=== PATIENT | male | born 1965 | race Caucasian/White ===

== ENCOUNTER → 2017-06-23 | Outpatient (CLI) | payer MEDICAID | PROVIDERS: ATTEND Internal Medicine Gastroenterology | DX: K22.5 Diverticulum of esophagus, acquired (principal) | CPT/HCPCS: 92611-GN ==

== ENCOUNTER 2017-07-27 07:08 | Inpatient (IN) | payer MEDICAID ==
--- NOTE | 2017-07-23 16:02 | GHP ---
[f rep st] HISTORY AND PHYSICAL DATE OF ADMISSION: 07/27/2017 CHIEF COMPLAINT: Esophageal dysmotility, esophageal spasm, and dysphagia. HISTORY OF PRESENT ILLNESS: The patient is a 51-year-old male, who is referred here by Dr. Enrique, for complaining of esophageal spasm, esophageal dysmotility , and dysphasia. The patient has undergone extensive workup for these problems , including abdominal ultrasound on December, it was unremarkable. Gastric emptying study on 06/16/2017 was unremarkable, and x-ray esophagram on 2016, that reported an outpouching of the cervical, thoracic junction, consistent with a Dylon-Maykel diverticulum, possible tiny hiatal hernia, and mild esophageal dysmotility, and x-ray video fluoro speech study on 2016, that mentions the same diverticulum just below the upper esophageal sphincter, and was otherwise normal with swallowing. Today, the patient says that he feels the diverticula bilaterally from which he massages food, and pills that get stuck in his esophagus when he tries to swallow. He denies feeling symptoms of GERD, but has esophageal spasms 3-4 times per week, that he says feel like heart attacks. He also says that he was having heartburn when he had an esophageal ulcer years ago, but he feels that this is healed. The patient also mentions that he suffers from parkinsonian symptoms, which he says has been told may be contributing to his dysphagia. He reports that he had a cardiac workup a year ago for his symptoms. PAST MEDICAL HISTORY: Significant for parkinsonian symptoms, hallucinations, seizures triggered by Demerol given in 1999 for kidney disease, but there is no clear diagnosis for his cognitive defects. As for his cognitive defects, he is aware of person, place and time in the exam room today, but mentions hearing a radio at the 3 o'clock position, in another room all the time, and police sirens are always around his house, and he always has a man following him. He takes clozapine which helps his hallucinations. REVIEW OF SYSTEMS: A 10-point review of systems negative, except for as noted above in the HPI. PHYSICAL EXAM: GENERAL: Well-groomed, pleasant, nontoxic-appearing male. SKIN : Warm, dry. HEENT: Normocephalic, atraumatic. Pupils equal and round. CARDIAC: Regular rate and rhythm. RESPIRATORY: CTA bilaterally, no increased work of breathing. Extremities adequate peripheral perfusion, negative for peripheral edema. MUSCULOSKELETAL: Patient ambulates using a walker. NEURO: Symmetric, cranial nerves 2-12 grossly intact, alert and oriented x4. PSYCH: Mood and affect are normal, the patient admits to some visual and audible hallucinations here in the exam room. ASSESSMENT: Zenker's hypopharyngeal diverticulum, esophageal spasm. PLAN: The patient was advised that according to his imaging, he has Zenker's diverticulum that would be amenable to repair in the operating room. We discussed the usual course of this procedure, and the general course of recovery , and the associated risks, including bleeding, infection, and changes to his voice. We talked about his esophageal spasm, and I mentioned that this may be treated, and has been treated effectively with Botox. We also talked about his tiny hiatal hernia, and I assured him that this would not be causing him the chest pains. I recommended that he have repair of the diverticulum first, before proceeding with repair of the hiatal hernia. He understood all the above. I answered all of his questions to his satisfaction. He wishes to move forward with the surgery for Zenker diverticulectomy. /[id number]/MODL MTDD
[2017-07-27] MEDS ORDERED: ceFAZolin 2 GM/DEXTROSE 100 ML IV ONE (07:43)
[2017-07-27] MEDS ORDERED: LIDOCAINE 1% 2 ML INJ ID PRN (07:49)
[2017-07-27] MEDS ORDERED: LR 1,000 ML IV ONE (07:49)
--- NOTE | 2017-07-27 08:41 | PDHPUP ---
History & Physical Update H&P update statement: This history and physical update is based on an assessment of the patient which was completed after admission or registration (within 24 hours), but prior to the surgery/procedure. H&P update: H&P reviewed & patient examined, no change in patient's condition since H&P completed
[2017-07-27] MEDS ORDERED: CITRIC ACID/SODIUM CITRATE 30 ML UDCUP ONE (08:51)
[2017-07-27] MEDS ORDERED: MIDAZOLAM 2 MG/2 ML VIAL ONE ×3 (08:53→10:33)
[2017-07-27] MEDS ORDERED: THROMBIN (BOVINE) 20,000 UNIT SPRAY TP ONE (08:58)
[2017-07-27] MEDS ORDERED: BUPIVACAINE 0.5% 30 ML SDV ONE (08:58)
[2017-07-27] MEDS ORDERED: fentaNYL 100 MCG/2 ML INJ ONE ×2 (09:01→12:26)
[2017-07-27] MEDS ORDERED: PROPOFOL/EMULSION 500 MG/50 ML BOTTLE IV ONE ×2 (09:02→09:21)
[2017-07-27] MEDS ORDERED: ROCURONIUM 100 MG/10 ML VIAL ONE (09:25)
[2017-07-27] MEDS ORDERED: LIDOCAINE 2% 5 ML SDV ONE (09:25)
[2017-07-27] MEDS ORDERED: SUGAMMADEX SODIUM 200 MG/2 ML VIAL IVP ONE ×2 (09:25→10:22)
[2017-07-27] MEDS ORDERED: NALOXONE HCL 0.4 MG/ML INJ IVP PRN (09:41)
--- NOTE | 2017-07-27 09:41 | PDANEPAE ---
ANE Past Medical History - Cardiovascular History Hx Hypertension: Yes Hx Arrhythmias: No Hx Chest Pain: No Hx Coronary Artery / Peripheral Vascular Disease: No Hx CHF / Valvular Disease: No Hx Palpitations: No Cardiovascular History Comment: PAST HX HYPERTENSION WHEN HEAVIER - NONE SINCE LOSING WT - Pulmonary History Hx COPD: No Hx Asthma/Reactive Airway Disease: No Hx Recent Upper Respiratory Infection: No Hx Oxygen in Use at Home: Yes O2 in Use at Home (L/minute): O2 2L NOC Hx Sleep Apnea: Yes Sleep Apnea Screening Result - Last Documented: Positive Pulmonary History Comment: POS SLEEP APNEA - Neurologic History Hx Cerebrovascular Accident: No Hx Seizures: No Hx Dementia: No Neurologic History Comment: SEIZURES 20 YRS AGO DUE TO DEMEROL. Jona chorea - Endocrine History Hx Diabetes: No - Renal History Hx Renal Disorders: Yes Renal History Comment: TAMSULOSIN - Liver History Hx Hepatic Disorders: No - Neurological & Psychiatric Hx Hx Neurological and Psychiatric Disorders: Yes Neurological / Psychiatric History Comment: PARKINSONS W/TREMORS - Cancer History Hx Cancer: Yes Cancer History Comment: HX RENAL CELL CA POSS W/CHEMO? - Congenital Disorder History Hx Congenital Disorders: No - GI History Hx Gastrointestinal Disorders: Yes Gastrointestinal History Comment: ESOPHAGEAL SPASMS. DIVERTICULI - Other Health History Other Health History: SCALP ECZEMA - Chronic Pain History Chronic Pain: Yes (HIPS) - Surgical History Prior Surgeries: SURGERY FOR THROAT GROWTH. SEPTOPLASTY ANE Review of Systems Review of Systems: - Exercise capacity METS (RN): 3 METS ANE Patient History - Allergies Allergies/Adverse Reactions: acetaminophen [From Vicodin] Allergy (Verified 07/27/17 08:29) chlorpromazine HCl [From Thorazine] Allergy (Verified 11/25/15 14:24) divalproex sodium [From Depakote] Allergy (Verified 11/25/15 14:24) duloxetine HCl [From Cymbalta] Allergy (Verified 11/25/15 14:24) hydrocodone bitartrate [From Vicodin] Allergy (Verified 11/25/15 14:24) meperidine HCl [From Demerol] Allergy (Verified 11/25/15 14:24) NSAIDS (Non-Steroidal Anti-Inflamma Allergy (Verified 11/25/15 14:24) zolpidem tartrate [From Ambien] Allergy (Verified 11/25/15 14:24) - Home Medications Home Medications: Tamsulosin HCl [Flomax 0.4 MG (*)] 0.4 mg PO HS 11/25/15 [Last Taken 07/27/17 06 :30] clonazePAM [Klonopin (*)] 0.5 mg PO BID PRN MDD 2mg 11/25/15 [Last Taken 17] Amantadine HCl [Amantadine] 100 mg PO BID 09/11/16 [Last Taken 07/27/17 06:30] Atropine Oral Drops 2 drops PO HS PRN 09/11/16 [Last Taken Unknown] Benztropine Mesylate [Cogentin (RX)] 1 mg PO QID 09/11/16 [Last Taken 07/27/17 06:30] Cyclobenzaprine [Cyclobenzaprine HCl] 5 mg PO TID 09/11/16 [Last Taken 07/26/17 22:00] Erythromycin Base [Erythromycin] 250 mg PO TIDMEAL 09/11/16 [Last Taken 07/13/17 ] HYOSCYAMINE SULFATE [Levsin-Sl] 0.125 mg SL PRN PRN 09/11/16 [Last Taken 22:00] Mirabegron [Myrbetriq] 50 mg PO DAILY 09/11/16 [Last Taken 07/27/17 06:30] Propranolol HCl [Inderal 20mg (*)] 20 mg PO BID 09/11/16 [Last Taken 07/27/17 06 :30] Quetiapine Fumarate [Seroquel Xr] 50 mg PO AD 09/11/16 [Last Taken Unknown] Rabeprazole Sodium 20 mg PO BID 09/11/16 [Last Taken 07/27/17 06:30] cloZAPine [Clozaril (*)] 100 mg PO DAILY 09/11/16 [Last Taken 07/26/17 23:00] - NPO status NPO Since - Liquids (Date): 07/26/17 NPO Since - Liquids (Time): 23:59 NPO Since - Solids (Date): 07/25/17 - Smoking Hx Smoking Status: Never smoked - Family Anes Hx Family Hx Anesthesia Complications: NEG ANE Labs/Vital Signs - Vital Signs Blood Pressure: 126/74 Heart Rate: 75 Respiratory Rate: 16 O2 Sat (%): 94 Height: 180.34 cm Weight: 113.398 kg ANE Physical Exam - Airway Neck exam: decreased ROM, short neck Mallampati Score: Class 2 Mouth exam: normal dental/mouth exam - Pulmonary Pulmonary: no rales or rhonchi, clear to auscultation, reduced air movement - Cardiovascular Cardiovascular: regular rate and rhythym, no murmur, rub, or gallop - ASA Status ASA Status: IV ANE Anesthesia Plan Anesthesia Plan: general endotracheal anesthesia Lines/Monitors: additional IV (rapid sequence induction with rocuronium, sitting up intubation)
[2017-07-27] MEDS ORDERED: DEXAMETHASONE 4 MG/ML VIAL IVP PRN (09:46)
[2017-07-27] MEDS ORDERED: LABETALOL HCL 50 MG/10 ML SYR IVP PRN (09:46)
[2017-07-27] MEDS ORDERED: ALBUTEROL 3 ML DEYVIAL IH PRN (09:46)
[2017-07-27] MEDS ORDERED: fentaNYL 100 MCG/2 ML INJ IVP PRN (09:46)
[2017-07-27] MEDS ORDERED: ONDANSETRON 4 MG/2 ML VIAL IVP PRN ×2 (09:46→10:27)
[2017-07-27] MEDS ORDERED: LR 500 ML IV PRN (09:46)
[2017-07-27] MEDS ORDERED: THROMBIN (BOVINE) 5,000 UNIT VIAL TP ONE (09:57)
--- NOTE | 2017-07-27 10:25 | POSTOPPROG ---
Post Op Note Date of Operation: 07/27/17 Surgeon: Bill Benton Urologist Physician: Carolina Dennis Anesthesiologist: Trixie Sherman Anesthesia: GET(General Endotracheal) Pre-op Diagnosis: Zenker's diverticulum with dysphagia Post-op Diagnosis: same Procedure: open diverticulectomy and cricomyotomy Findings: large diverticulum, no leak along staple line upon interrogation Inf/Abcess present in the surg proc area at time of surgery?: No EBL: Minimal Complications: none Drains: Loving Specimen(s): diverticulum to pathology
[2017-07-27] MEDS ORDERED: DIAZEPAM 10 MG/2 ML SYR ONE (10:37)
--- NOTE | 2017-07-27 10:54 | POSTANESTH ---
Post Anesthetic Evaluation Cardiovascular Status: Normal, Stable Respiratory Status: Similar to Pre-op Cond. Level of Consciousness/Mental Status: Can Participate in Eval Pain Control: Adequate, Prn Tx Ordered Nausea/Vomiting Control: Adequate, Prn Tx Ordered Complications Possibly Related to Anesthesia: None Noted
[2017-07-27] MEDS: HYDROmorphONE/DILAUDID 2 MG/ML INJ IVP PRN ×5 (13:52→21:21)
[2017-07-27] MEDS: NS W/ 20 KCl/L 1,000 ML IV SCH ×2 (13:53→22:28)
[2017-07-27] MEDS: oxyCODONE IR 5 MG TAB PO PRN ×2 (16:03→22:29)
[2017-07-27] MEDS ORDERED: HYOSCYAMINE SULFATE 0.125 MG TAB SL PRN (20:17)
[2017-07-27] MEDS ORDERED: clonazePAM 0.5 MG TAB PO PRN (20:17)
[2017-07-27] MEDS: cloZAPine 100 MG TAB PO SCH (21:18)
[2017-07-27] MEDS: BENZTROPINE MESYLATE 1 MG TAB PO SCH (21:18)
[2017-07-27] MEDS: AMANTADINE HCL 100 MG CAP PO SCH (21:19)
[2017-07-27] MEDS: PROPRANOLOL HCL 20 MG TAB PO SCH (21:19)
[2017-07-27] MEDS: RABEPRAZOLE SODIUM 20 MG PO SCH (21:27)
[2017-07-27] MEDS: DOCUSATE SODIUM 100 MG CAP PO SCH (21:27)
[2017-07-28 05:04] LABS: HEMATOCRIT 40.3 % (40.0-51.0); HEMOGLOBIN 13.7 g/dL (13.7-17.5)
[2017-07-28 05:19] LABS: ANION GAP 9 mEq/L (8-16); CALCIUM 8.7 mg/dL (8.5-10.4); CARBON DIOXIDE 26 mEq/l (22-31); CHLORIDE 104 mEq/L (97-110); CREATININE 0.9 mg/dL (0.7-1.3); GLOMERULAR FILTRATION RATE > 60; GLUCOSE 122 mg/dL (70-100); POTASSIUM 3.9 mEq/L (3.5-5.2); SODIUM 139 mEq/L (134-144)
[2017-07-28] MEDS: NS W/ 20 KCl/L 1,000 ML IV SCH (06:20)
--- NOTE | 2017-07-28 10:10 | SOAPPROG ---
BOUCHRA Progress Note Assessment/Plan: Assessment/Plan: 51 Y M c parkinsonian symptoms, possible Jona's, + psychiatric history, s/p open resection of Zenker's diverticulum. Continue routine post op care. Continue clears. Dispo: pending. S: c/o pain with swallowing, then goes into tangent about cell phones, and lights, and passwords... O: alert, answers questions but goes into unrelated rants. knows he is in the hospital. unable to tell me year and month. mmm, neck inc clean, diony drain in place ctab rrr abd soft 07/28/17 10:06 Objective: Vital Signs Temp Pulse Resp BP Pulse Ox 37.2 C 87 14 144/85 H 92 07/28/17 08:00 07/28/17 08:00 07/28/17 08:00 07/28/17 08:00 07/28/17 08:00 Laboratory Results 07/28/17 04:15 07/28/17 04:15 07/27/17 07/28/17 07/29/17 05:59 05:59 05:59 Intake Total 3355 Output Total 1050 Balance 2305 ICD10 Worksheet Patient Problems: Problems Problem Status Onset Chest pain Acute
[2017-07-28] MEDS: TAMSULOSIN HCL 0.4 MG CAP PO SCH ×2 (10:22→11:14)
[2017-07-28] MEDS: DOCUSATE SODIUM 100 MG CAP PO SCH ×3 (10:22→20:36)
[2017-07-28] MEDS: PROPRANOLOL HCL 20 MG TAB PO SCH ×3 (10:22→20:38)
[2017-07-28] MEDS: BENZTROPINE MESYLATE 1 MG TAB PO SCH ×3 (10:22→20:34)
[2017-07-28] MEDS: VENLAFAXINE HCL 75 MG TAB PO SCH ×2 (10:22→11:14)
[2017-07-28] MEDS: AMANTADINE HCL 100 MG CAP PO SCH ×3 (10:22→20:36)
[2017-07-28] MEDS: RABEPRAZOLE SODIUM 20 MG PO SCH (10:23)
[2017-07-28] MEDS: Mirabegron [Myrbetriq] 50 MG PO SCH (10:23)
--- NOTE | 2017-07-28 11:31 | ASMTCMCOM ---
CM Note CM Note Notes: Pt is POD #1 s/p open resection Zenkers diverticulum. Pt has hx of Parkinsons, per RN, pt is confused at this time (possibly sec to meds from surgery yest); she said apparently brother will be coming to stay with him. He currently lives at home w/roommates. PT rec pending, will meet with pt when confusion clears. DC needs not clear yet. Date Signed: 07/28/2017 11:30 AM Electronically Signed By:Valeria Mejia RN
[2017-07-28] MEDS: ACETAMINOPHEN 325 MG TAB PO PRN (17:26)
[2017-07-28] MEDS: cloZAPine 100 MG TAB PO SCH (20:34)
[2017-07-28] MEDS: PANTOPRAZOLE SODIUM 40 MG TAB PO SCH (20:37)
[2017-07-29] MEDS: AMANTADINE HCL 100 MG CAP PO SCH ×2 (08:30→21:04)
[2017-07-29] MEDS: DOCUSATE SODIUM 100 MG CAP PO SCH ×2 (08:30→21:03)
[2017-07-29] MEDS: BENZTROPINE MESYLATE 1 MG TAB PO SCH ×2 (08:30→21:03)
[2017-07-29] MEDS: VENLAFAXINE HCL 75 MG TAB PO SCH (08:30)
[2017-07-29] MEDS: PROPRANOLOL HCL 20 MG TAB PO SCH ×2 (08:30→21:03)
[2017-07-29] MEDS: PANTOPRAZOLE SODIUM 40 MG TAB PO SCH ×2 (08:30→21:03)
[2017-07-29] MEDS: ENOXAPARIN 40 MG/0.4 ML SYR SC SCH (08:30)
[2017-07-29] MEDS: TAMSULOSIN HCL 0.4 MG CAP PO SCH (08:30)
[2017-07-29] MEDS: Mirabegron [Myrbetriq] 50 MG PO SCH (08:36)
--- NOTE | 2017-07-29 14:54 | ASMTCMCOM ---
CM Note CM Note Notes: Note: Pt. goes by "Rico". Per RN, Pt. has been "talking to himself' and possibly confused and hallucinating in room. RN advocated and spoke w/ Starr Guzman. Starr rey OT and also Therese Gongora behavioral health consult. Therese Gongora not working at [facility] until August. SWer was able to get in touch w/ brother, Joel . Joel states Pt. lives in the basement of a house and his roomates live upstairs. Pt. has been living independently. Brother states that Pt. has struggled with mental health issues, but other than depression, does not know additional possible diagnoses. Joel states Pt. states he might have been diagnosed with early onset dementia and Parksinson's disease. States their father of Parkinson's disease and was always very sensitive to anesthesia. Brother Joel reports Pt. has not driven in some two years. Joel states Pt. did get disability benefits recently, but doesn't know what diagnoses helped him obtain benefits. Brother Joel plans to [facility] to get a sense of Pt's presentation. Will work on [employer] application tomorrow if Joel thinks Pt. will need 30-day Medicaid stay before going home. Date Signed: 07/29/2017 02:53 PM Electronically Signed By:Elisa Lucero LCSW
[2017-07-29] MEDS ORDERED: HYDROmorphONE/DILAUDID 1 MG/ML INJ IVP PRN (15:00)
--- NOTE | 2017-07-29 17:44 | SOAPPROG ---
SOAP Progress Note Assessment/Plan: Assessment: 51 Y M c parkinsonian symptoms, possible [place]'s, +psychiatric history, s/ p open resection of Zenker's diverticulum. Cont routine post op care Behavior health consult PT/OT Swallow study Cont wired jaw diet S: Pt continues to have tangental speaking this morning, not making sense. No specific complaints. O: Pt lying in bed. Appears drowsy. MMM neck incision dressing c/d abd soft Objective: Vital Signs Temp Pulse Resp BP Pulse Ox 37.2 C 76 20 132/76 H 95 07/29/17 16:00 07/29/17 16:00 07/29/17 16:00 07/29/17 16:00 07/29/17 16:00 Laboratory Results 07/28/17 04:15 07/28/17 04:15 07/28/17 07/29/17 07/30/17 05:59 05:59 05:59 Intake Total 3355 Output Total 1050 1400 Balance 2305 -1400 ICD10 Worksheet Patient Problems: Problems Problem Status Onset Chest pain Acute
[2017-07-29] MEDS: cloZAPine 100 MG TAB PO SCH (21:03)
[2017-07-30] MEDS: ACETAMINOPHEN 325 MG TAB PO PRN ×2 (09:52→20:28)
[2017-07-30] MEDS: AMANTADINE HCL 100 MG CAP PO SCH ×2 (09:53→20:14)
[2017-07-30] MEDS: Mirabegron [Myrbetriq] 50 MG PO SCH (09:54)
[2017-07-30] MEDS: BENZTROPINE MESYLATE 1 MG TAB PO SCH ×2 (09:54→20:14)
[2017-07-30] MEDS: DOCUSATE SODIUM 100 MG CAP PO SCH ×2 (09:54→20:13)
[2017-07-30] MEDS: PANTOPRAZOLE SODIUM 40 MG TAB PO SCH ×2 (09:54→20:13)
[2017-07-30] MEDS: PROPRANOLOL HCL 20 MG TAB PO SCH ×2 (09:54→20:14)
[2017-07-30] MEDS: TAMSULOSIN HCL 0.4 MG CAP PO SCH (09:54)
[2017-07-30] MEDS: VENLAFAXINE HCL 75 MG TAB PO SCH (09:55)
[2017-07-30] MEDS: ENOXAPARIN 40 MG/0.4 ML SYR SC SCH (09:55)
--- NOTE | 2017-07-30 12:27 | SOAPPROG ---
SOAP Progress Note Assessment/Plan: Assessment: 51 Y M c parkinsonian symptoms, possible [place]'s, +psychiatric history, s/ p open resection of Zenker's diverticulum. Cont routine post op care Behavior health consult PT/OT Cont wired jaw diet Dressing change today Dispo: will stay here over the weekend to see if mental status improves then discharge to home or to long-term. S: Pt continues to have tangental speaking this morning, but improved clarity from yesterday. No specific complaints. O: Pt sitting up in bed, NAD MMM neck incision dressing with some serous shadowing. abd soft 07/30/17 12:26 Objective: Vital Signs Temp Pulse Resp BP Pulse Ox 36.7 C 73 16 135/84 H 93 07/30/17 08:00 07/30/17 08:00 07/30/17 08:00 07/30/17 08:00 07/30/17 08:00 Laboratory Results 07/28/17 04:15 07/28/17 04:15 07/29/17 07/30/17 07/31/17 05:59 05:59 05:59 Intake Total 1100 Output Total 1400 Balance -1400 1100 ICD10 Worksheet Patient Problems: Problems Problem Status Onset Chest pain Acute
--- NOTE | 2017-07-30 15:02 | ASMTCMCOM ---
CM Note CM Note Notes: Today GENEVIEVE Yeh, OT, and SWer met briefly to discuss d/c planning for Pt. Starr thinks that it is likely Pt. will clear in next few days and not need 30-day stay in LTC Medicaid facility. OT recommending LTC at this time. Starr would like to "reassess" on Wednesday. Possible Pt. had strong reaction to anesthesia. SWer spoke w/ brother Joel again on phone today. Joel did visit last night and stated Pt. was definitely not himself. Hallucinating, and making incoherent statements. States just "last weekend" he had normal conversations with his brother. Joel states he understood from Pt. that he would be his MDPOA - Joel does not believe there is paperwork to that effect. SWer was able to get more details today by a colleague accessing [employer] database. Pt. 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 Dr. Hawkins referred Pt. to Dr. Jewel Cisneros, a specialist in movement disorders. Pt. also had psychiatrist through [facility] Dr. Coty Guillaume . SWer left msg for Dr. Guillaume today in an attempt to coordinate care. Also l/m for Ms. Pamela Rogers who appears to be Pt's protective services case worker through [facility] . Await return calls. Pt's PCP is Dr. Engel with Dr. Irena Eddy seeing Pt. as well. Plan: Per surgery, reevaluate Pt's mental status on Wednesday. If Pt. not clear, SWer recommends neurology consult/psychiatry consult and [facility] 100 will need to be completed if Medicaid custodial stay is indicated. Date Signed: 07/30/2017 03:01 PM Electronically Signed By:Elisa Lucero LCSW
--- NOTE | 2017-07-30 16:59 | ASMTCMCOM ---
CM Note CM Note Notes: Today [facility] gearcase assembler Liza Rogers returned SWer's call. Has a release to speak w/ [facility]. States current Pt. diagnoses are 1) Schizoaffective disorder, Bipolar Type and 2) PTSD. Liza states Pt. does have a hx. of hallucinations, but is normally independently functioning. Liza states that [facility] can call quality assurance supervisor trim line at [facility] should we need further consultation about medications - . Should Pt. need [facility] psychiatric eval before d/c, call [facility] for Emergency Psychiatric Services (EPS) evaluation ([phone]). Dr. Guillaume called back and stated that she was available for consultation at should Pt. need EPS evaluation and they chose to consult with her. Dr Guillaume approved of current medication plan and dosages. She encouraged limiting Klonopin if Pt. is incoherent. Plan for re-evaluation of Pt. on Wednesday. Date Signed: 07/30/2017 04:59 PM Electronically Signed By:Elisa Lucero LCSW
[2017-07-30] MEDS: cloZAPine 100 MG TAB PO SCH (20:13)
[2017-07-31] MEDS: ACETAMINOPHEN 325 MG TAB PO PRN (04:38)
[2017-07-31] MEDS: Mirabegron [Myrbetriq] 50 MG PO SCH (08:51)
[2017-07-31] MEDS: TAMSULOSIN HCL 0.4 MG CAP PO SCH (09:37)
[2017-07-31] MEDS: ENOXAPARIN 40 MG/0.4 ML SYR SC SCH (09:38)
[2017-07-31] MEDS: PROPRANOLOL HCL 20 MG TAB PO SCH ×2 (09:38→20:52)
[2017-07-31] MEDS: VENLAFAXINE HCL 75 MG TAB PO SCH (09:38)
[2017-07-31] MEDS: DOCUSATE SODIUM 100 MG CAP PO SCH ×2 (09:38→20:51)
[2017-07-31] MEDS: BENZTROPINE MESYLATE 1 MG TAB PO SCH ×2 (09:38→20:52)
[2017-07-31] MEDS: PANTOPRAZOLE SODIUM 40 MG TAB PO SCH ×2 (09:38→20:51)
[2017-07-31] MEDS: AMANTADINE HCL 100 MG CAP PO SCH ×2 (09:38→20:51)
--- NOTE | 2017-07-31 09:45 | SOAPPROG ---
SOHAILEY Progress Note Assessment/Plan: Assessment/Plan: 51yo M s/p Moshe diverticulectomy - Pain and numbness, will try oxycodone this AM as he has many allergies - His dose of amantidine is appropriate - IMMUNOLOGY TEACHER eval as he is having a lot of coughing this AM and I am concerned for poss aspiration. Cont modified diet for the time being 07/31/17 09:44 Subjective: Pain and numbness Objective: Vital Signs Temp Pulse Resp BP Pulse Ox 36.4 C 103 H 20 119/89 H 91 L 07/31/17 08:00 07/31/17 08:00 07/31/17 08:00 07/31/17 08:00 07/31/17 08:00 Laboratory Results 07/28/17 04:15 07/28/17 04:15 07/30/17 07/31/17 08/01/17 05:59 05:59 05:59 Intake Total 1100 Balance 1100 ICD10 Worksheet Patient Problems: Problems Problem Status Onset Chest pain Acute
[2017-07-31] MEDS: cloZAPine 100 MG TAB PO SCH (20:51)
[2017-07-31] MEDS: oxyCODONE IR 5 MG TAB PO PRN (21:04)
[2017-08-01] MEDS: oxyCODONE IR 5 MG TAB PO PRN ×2 (00:48→21:17)
--- NOTE | 2017-08-01 09:12 | SOAPPROG ---
BOUCHRA Progress Note Assessment/Plan: Assessment/Plan: 51yo M s/p Moshe diverticulectomy - speech therapy evaluation yesterday went off without a hitch, and he passed. Okay for him to have scrambled legs and mashed potatoes in addition to his wired jaw diet. - patient feels as though he is "getting sick" will check some labs today no fevers no chills he otherwise looks nontoxic - mental status continues to be a little zany, will evaluate early this week hopefully home this week 07/31/17 09:44 08/01/17 09:11 Subjective: I feel like I have a cold Objective: Vital Signs Temp Pulse Resp BP Pulse Ox 36.8 C 92 18 151/93 H 94 08/01/17 07:47 08/01/17 07:47 08/01/17 07:47 08/01/17 07:47 08/01/17 07:47 Laboratory Results 07/28/17 04:15 07/28/17 04:15 ICD10 Worksheet Patient Problems: Problems Problem Status Onset Chest pain Acute
[2017-08-01] MEDS: AMANTADINE HCL 100 MG CAP PO SCH ×2 (09:31→21:12)
[2017-08-01] MEDS: ACETAMINOPHEN 325 MG TAB PO PRN ×2 (09:31→14:59)
[2017-08-01] MEDS: BENZTROPINE MESYLATE 1 MG TAB PO SCH ×2 (09:31→21:12)
[2017-08-01] MEDS: ENOXAPARIN 40 MG/0.4 ML SYR SC SCH (09:31)
[2017-08-01] MEDS: PROPRANOLOL HCL 20 MG TAB PO SCH ×2 (09:31→21:11)
[2017-08-01] MEDS: TAMSULOSIN HCL 0.4 MG CAP PO SCH (09:31)
[2017-08-01] MEDS: PANTOPRAZOLE SODIUM 40 MG TAB PO SCH ×2 (09:32→21:12)
[2017-08-01] MEDS: DOCUSATE SODIUM 100 MG CAP PO SCH ×2 (09:32→21:14)
[2017-08-01] MEDS: VENLAFAXINE HCL 75 MG TAB PO SCH (09:32)
[2017-08-01 09:44] LABS: HEMATOCRIT 42.9 % (40.0-51.0); HEMOGLOBIN 14.5 g/dL (13.7-17.5); MEAN CELL HEMOGLOBIN 28.4 pg (27.9-34.1); MEAN CELL HEMOGLOBIN CONCENTR. 33.8 g/dL (32.4-36.7); MEAN CELL VOLUME 84.1 fL (81.5-99.8); RED BLOOD CELL COUNT 5.1 10^6/uL (4.40-6.38); RED CELL DISTRIBUTION WIDTH 12.6 % (11.5-15.2)
[2017-08-01] MEDS: Mirabegron [Myrbetriq] 50 MG PO SCH (10:00)
[2017-08-01 10:05] LABS: ANION GAP 14 mEq/L (8-16); CALCIUM 8.8 mg/dL (8.5-10.4); CARBON DIOXIDE 23 mEq/l (22-31); CHLORIDE 105 mEq/L (97-110); GLOMERULAR FILTRATION RATE > 60; GLUCOSE 134 mg/dL (70-100); POTASSIUM 3.5 mEq/L (3.5-5.2); SODIUM 142 mEq/L (134-144)
--- NOTE | 2017-08-01 15:20 | ASMTCMCOM ---
CM Note CM Note Notes: Pt passed swallow eval and starting on soft foods. Hopefully will d/c in a few days. CM to continue to follow. Date Signed: 08/01/2017 03:20 PM Electronically Signed By:JOANNE Kelly
[2017-08-01] MEDS: cloZAPine 100 MG TAB PO SCH (21:11)
[2017-08-02] MEDS: oxyCODONE IR 5 MG TAB PO PRN ×2 (03:04→09:23)
[2017-08-02] MEDS: AMANTADINE HCL 100 MG CAP PO SCH ×2 (09:15→21:14)
[2017-08-02] MEDS: PROPRANOLOL HCL 20 MG TAB PO SCH ×2 (09:15→21:13)
[2017-08-02] MEDS: DOCUSATE SODIUM 100 MG CAP PO SCH ×2 (09:15→21:14)
[2017-08-02] MEDS: BENZTROPINE MESYLATE 1 MG TAB PO SCH ×2 (09:15→21:13)
[2017-08-02] MEDS: Mirabegron [Myrbetriq] 50 MG PO SCH (09:16)
[2017-08-02] MEDS: TAMSULOSIN HCL 0.4 MG CAP PO SCH (09:16)
[2017-08-02] MEDS: VENLAFAXINE HCL 75 MG TAB PO SCH (09:16)
[2017-08-02] MEDS: ENOXAPARIN 40 MG/0.4 ML SYR SC SCH (09:16)
[2017-08-02] MEDS: PANTOPRAZOLE SODIUM 40 MG TAB PO SCH ×2 (09:16→21:14)
--- NOTE | 2017-08-02 09:20 | SOAPPROG ---
SOAP Progress Note Assessment/Plan: Assessment: 51 Y M c parkinsonian symptoms, +psychiatric history, s/p open resection of Zenker's diverticulum. Cont routine post op care PT/OT Cont wired jaw diet + scrambled eggs and mashed potatoes ok Dispo: OK from surgical standpoint. Home vs jail 2/2 mental status. Will discuss with case management. S: Pt c/o cough and some incisional neck pain. He states that he doesn't remember details of this hospital stay and that he thinks this all may be a dream that he will wake up from. O: Afebrile Pt lying in bed, NAD MMM coughing up mucous lungs CTAB neck incision c/d/i with steri strips. Julianna draining. abd soft Objective: Vital Signs Temp Pulse Resp BP Pulse Ox 37.1 C 94 18 125/70 H 92 08/02/17 08:24 08/02/17 08:24 08/02/17 08:24 08/02/17 08:24 08/02/17 08:24 Laboratory Results 08/01/17 09:31 08/01/17 09:31 ICD10 Worksheet Patient Problems: Problems Problem Status Onset Chest pain Acute
[2017-08-02 10:17] LABS: % IMMATURE GRANULYOCYTES 0.4 % (0.0-1.1); ABSOLUTE IMMATURE GRANULOCYTES 0.03 10^3/uL (0.00-0.10); ADD DIFF? NO; ADD MORPH? NO; ADD SCAN? NO; ATYPICAL LYMPHOCYTE FLAG 10 (0-99); FRAGMENT RBC FLAG 0 (0-99); HEMATOCRIT 40.6 % (40.0-51.0); HEMOGLOBIN 13.6 g/dL (13.7-17.5); LEFT SHIFT FLG 0 (0-99); LIPEMIA HEMOLYSIS FLAG 80 (0-99); MEAN CELL HEMOGLOBIN 28.7 pg (27.9-34.1); MEAN CELL HEMOGLOBIN CONCENTR. 33.5 g/dL (32.4-36.7); MEAN CELL VOLUME 85.7 fL (81.5-99.8); MEAN PLATELET VOLUME 9.7 fL (8.7-11.7); PLATELET CLUMPS FLAG 0 (0-99); PLATELET COUNT 236 10^3/uL (150-400); RED BLOOD CELL COUNT 4.74 10^6/uL (4.40-6.38); RED CELL DISTRIBUTION WIDTH 12.7 % (11.5-15.2)
[2017-08-02] MEDS: ACETAMINOPHEN 325 MG TAB PO PRN ×2 (12:47→21:13)
[2017-08-02] MEDS ORDERED: AMPICILLIN/SULBACTAM 1.5 GM in NS 50 ML IV SCH ×2 (15:30→18:00)
--- NOTE | 2017-08-02 16:42 | GCON ---
[f rep st] CONSULTATION DATE OF CONSULTATION: 08/02/2017 REASON FOR CONSULTATION: Internal medicine consultation for fever. HISTORY OF PRESENT ILLNESS: This is a 51-year-old gentleman who on 07/27 underwent the open repair of a Zenker diverticulum with a João myotomy from the left anterior chest region. He tolerated the procedure well and it was uncomplicated. Six days postop, today, the gentleman has developed a fever and has had 2 days of purulent cough without chest pain or shortness of breath. He reports some congestion in his right ear and feels that it is infected. He denies having a sore throat but does in fact have purulent productive cough without shortness of breath. He also denies having a history of asthma or recurrent problems of wheezing. There is also no prior history of coronary artery disease and he had a Lexiscan performed in the last 6 months which was negative. He does report some back pain in between the scapulae which was consistent with his esophageal spasm pain which he had had preoperative of his repair of the Zenker diverticulum. PAST MEDICAL HISTORY: Denies asthma. Positive for high blood pressure. Negative for diabetes and renal problems. He carries a diagnosis of Parkinson disease or Parkinson syndrome and has been seen by Dr. Cisse. The exact diagnosis is unclear and he discusses a possibility of a Lewy body disease although he does not know if that has been investigated. There is mention in his EMR of Guadalupe disease, yet he has no family history of this. 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 Cises. PAST SURGICAL HISTORY: 1. On 07/27/2017, he had the open repair of his Zenker diverticulum. 2. Uvulopalatopharyngectomy performed approximately 3 years ago. ALLERGIES: Reported to chlorpromazine, duloxetine, and others which are listed in his EMR. REVIEW OF SYSTEMS: A 10-point review of systems is otherwise negative. Recent studies show he has had a video fluoroscopic swallowing evaluation which was negative for findings of aspiration. He did have some pooling in the posterior oropharynx which resolved with the drinking of a thin liquid. Thus, a dysphagia 2 diet has been recommended with eating upright, alternating solids and liquids and eating slowly and chewing his food well. There are no sharri signs of aspiration from that study. FAMILY HISTORY: Positive for coronary artery disease and negative for coagulopathy. He has a sister and mother who both had DVTs but he denies a family history of a clotting disorder. 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 Not . Tobacco: Never. Alcohol: He rarely drank previous to the onset of his problem with his Zenker diverticulum and now he may have a glass of wine once or twice a year. PHYSICAL EXAMINATION: GENERAL: This is a pleasant, alert gentleman who is oriented x3 but becomes easily confused with numerous questions. VITAL SIGNS: He was febrile at 39.2 with normal blood pressure, heart rate and oxygenation is normal on supplemental oxygen. HEENT: His tympanic membranes are huntley bilaterally. The throat has a little bit of pooling of mucus but no sharri purulent mucus, erythema or signs of injection. There are no lesions on the tongue or buccal mucosa. CHEST: There is a surgical site in the left supraclavicular region that is healing well with a Mcarthur drain. He coughed during my examination and did in fact cough up purulent yellow sputum. Chest wall shows tenderness to palpation between the shoulder blades without signs of trauma. He has normal inspiratory excursion. LUNGS: Clear to P and A without wheezing or rales. HEART: Singular S1, S2. No murmur or gallop. ABDOMEN: Overweight. Normoactive bowel sounds. No masses, tenderness or organomegaly. EXTREMITIES: No edema, cyanosis, or clubbing. Negative Homans sign. LABORATORY: Recent laboratory today shows a normal WBC, hemoglobin. His renal panel is normal. Glucose is slightly elevated. A respiratory panel, flu swab, blood culture and urine culture are pending. Chest x-ray to my read shows a possible left lower lobe infiltrate. This is a very subtle finding. His heart is otherwise normal and there are no other signs of active pulmonary disease. ASSESSMENT: 1. Aspiration pneumonia with fever and purulent sputum production in a gentleman who has recently undergone repair of a Zenker diverticulum. Though the chest x-ray is not conclusive, the finding of purulent sputum seems strong enough to begin antibiotic care. He is not wheezing and there is no history of asthma, so bronchodilator therapy would not be necessary at this point. 2. Swallowing difficulty and chest pains related to his Zenker diverticulum. This is mostly resolved and though the swallowing study did not show aspiration , he may have pooled material in his posterior oropharynx or have eaten inappropriately. He is a little bit confused and has been by review of the notes in a confused state, and it is possible he aspirated during his confused state. Thus, this supports the finding of a possible aspiration pneumonia. His swallowing evaluation would indicate that he should sit upright, eat slowly , alternate liquids and solids. These orders have been placed. 3. Auditory and visual hallucinations. This is a stable diagnosis and we have him on his clozapine. He does seem to be improving with this. He is aware of the problem and reports that the clozapine improves his symptoms such that he can manage them. 4. Hypertension. He is currently in good control. 5. History of Parkinson disease for which he is on amantadine, and we will continue this medication. This appears to be stable. 6. Obstructive sleep apnea for which he uses oxygen at night only. We will continue to use his CPAP mask with supplemental oxygen. We will follow along with you. Time 55 minutes /[id number]/MODL MTDD
--- NOTE | 2017-08-02 17:04 | ASMTCMCOM ---
CM Note CM Note Notes: Pt still w/some confusion today, although conversation in afternoon was more clear than am conversation. Pt also has fever and not feeling great today. We discussed options of going home w/home care vs SNF. PT is still recommending SNF if pt does not have someone to stay w/him at home. Pt does live independantly, rents apt form friends who live upstairs. Pt is open to SNF if needed but he is hoping to get stronger over next few days and get to the point where he is ok to dc home. He said the main thing he is nervous about are the stairs that lead to his basement apt but he has been nervous about those for a long time he said. This CM Spoke today w/Hitesh Ba from [facility] [phone])) who is his RN/CM. Hitesh sees pt weekly and helps set up his meds. He said that if pt will need additional hhc we will need to set up through [facility] as he will likely not be able to be homebound. Also spoke w/pt's brother, Joel today. CM should start ULTC-100 tomorrow in case that pt ends up needing SNF. Pt said that if he did do rehab would like to stay in [place] if possible. He said would be ok to start w/referral to [facility]. KELLEN w/f. Date Signed: 08/02/2017 05:02 PM Electronically Signed By:Valeria Mejia, RN
[2017-08-02] MEDS: cloZAPine 100 MG TAB PO SCH (21:14)
[2017-08-02] MEDS: AMPICILLIN/SULBACTAM 1.5 GM in NS 50 ML IV SCH (23:53)
[2017-08-03] MEDS: NS W/ 20 KCl/L 1,000 ML IV SCH (01:14)
[2017-08-03] MEDS: AMPICILLIN/SULBACTAM 1.5 GM in NS 50 ML IV SCH ×4 (05:03→22:34)
[2017-08-03] MEDS: oxyCODONE IR 5 MG TAB PO PRN (05:05)
[2017-08-03 05:24] LABS: % IMMATURE GRANULYOCYTES 0.3 % (0.0-1.1); ABSOLUTE IMMATURE GRANULOCYTES 0.02 10^3/uL (0.00-0.10); ADD DIFF? NO; ADD MORPH? NO; ADD SCAN? NO; ATYPICAL LYMPHOCYTE FLAG 10 (0-99); FRAGMENT RBC FLAG 0 (0-99); HEMOGLOBIN 12.5 g/dL (13.7-17.5); LEFT SHIFT FLG 0 (0-99); LIPEMIA HEMOLYSIS FLAG 90 (0-99); MEAN CELL HEMOGLOBIN 28.5 pg (27.9-34.1); MEAN CELL HEMOGLOBIN CONCENTR. 33.8 g/dL (32.4-36.7); MEAN CELL VOLUME 84.5 fL (81.5-99.8); MEAN PLATELET VOLUME 9.5 fL (8.7-11.7); PLATELET CLUMPS FLAG 10 (0-99); PLATELET COUNT 202 10^3/uL (150-400); RED BLOOD CELL COUNT 4.38 10^6/uL (4.40-6.38); RED CELL DISTRIBUTION WIDTH 12.5 % (11.5-15.2)
--- NOTE | 2017-08-03 09:25 | HOSPPROG ---
Hospitalist Progress Note Assessment/Plan: 51-year-old male with probable aspiration postoperatively due to sedation while eating. He was febrile yesterday but is afebrile today and has not had any respiratory difficulties. He continues to have cough but the cough now is nonproductive. He was placed on Unasyn and bronchodilators yesterday and is improved. -aspiration pneumonia now improving. Will check his SA O2 on room air. Patient normally does not use oxygen during the day but uses it only at night through his CPAP machine. -hypertension: Currently well controlled on usual medications. -hallucinations: Both auditory and visual. The seem to have improved as he is receiving his clozapine on a regular basis. -OSAS: Patient is using his CPAP with oxygen successfully and sleeping well. Plan: Continue his current care. If discharges plan we can change to p.o. antibiotics for outpatient management. Subjective: No complaints. His cough persists but he has a nonproductive cough. Yesterday it was productive there has been no fever and no complaints of chest pain or abdominal pain continues to have some mid back pain between the scapula consistent with his prior esophageal spasm Objective: Vital Signs Temp Pulse Resp BP Pulse Ox 37.1 C 76 15 112/67 93 08/03/17 07:58 08/03/17 07:58 08/03/17 07:58 08/03/17 07:58 08/03/17 07:58 Microbiology 08/02/17 16:12 Respiratory Panel (PCR) - Final Nasal, Sinus - Swab Human Rhinovirus/Enterovirus Laboratory Results 08/03/17 05:15 08/01/17 09:31 08/02/17 08/03/17 08/04/17 05:59 05:59 05:59 Intake Total 410 Balance 410 - Time Spent With Patient Time Spent with Patient: greater than 35 minutes Time Spent with Patient: Greater than 35 minutes spent on this patients care, greater than 50% of time spent counseling, educating, and coordinating care regarding the above mentioned plan. - Pending Discharge Pending Discharge Within 24 Hours: No Pending Discharge Within 48 Hours: Yes Pending Discharge Date: 08/05/17 Pending Discharge Time: 11:00 - Physical Exam Constitutional: no apparent distress Eyes: PERRL, anicteric sclera Ears, Nose, Mouth, Throat: moist mucous membranes, hearing normal, other ( Surgical site in the left supraclavicular region appears to be healing well without drainage or erythema or induration. The Gilbert drain has been removed. ) Cardiovascular: regular rate and rhythym, no murmur, rub, or gallop Respiratory: no respiratory distress, no rales or rhonchi, clear to auscultation Gastrointestinal: normoactive bowel sounds, soft, non-tender abdomen, no palpable masses Genitourinary: no bladder fullness Skin: warm Musculoskeletal: generalized weakness Neurologic: AAOx3, CN II-XII Intact ICD10 Worksheet Patient Problems: Problems Problem Status Onset Chest pain Acute
[2017-08-03] MEDS: TAMSULOSIN HCL 0.4 MG CAP PO SCH (09:55)
[2017-08-03] MEDS: DOCUSATE SODIUM 100 MG CAP PO SCH ×2 (09:55→20:49)
[2017-08-03] MEDS: PANTOPRAZOLE SODIUM 40 MG TAB PO SCH ×2 (09:55→20:49)
[2017-08-03] MEDS: BENZTROPINE MESYLATE 1 MG TAB PO SCH ×2 (09:56→20:50)
[2017-08-03] MEDS: VENLAFAXINE HCL 75 MG TAB PO SCH (09:56)
[2017-08-03] MEDS: ENOXAPARIN 40 MG/0.4 ML SYR SC SCH (09:57)
[2017-08-03] MEDS: PROPRANOLOL HCL 20 MG TAB PO SCH ×2 (10:00→20:49)
[2017-08-03] MEDS: AMANTADINE HCL 100 MG CAP PO SCH ×2 (10:11→20:50)
[2017-08-03 11:05] LABS: COLOR YELLOW; LEUKOCYTE ESTERASE,URINE NEGATIVE (NEGATIVE); NITRITE,URINE NEGATIVE (NEGATIVE)
[2017-08-03] MEDS: CYCLOBENZAPRINE 10 MG TAB PO PRN (11:27)
[2017-08-03] MEDS: Mirabegron [Myrbetriq] 50 MG PO SCH (13:06)
[2017-08-03] MEDS: ACETAMINOPHEN 325 MG TAB PO PRN (13:10)
--- NOTE | 2017-08-03 15:12 | SOAPPROG ---
SOAP Progress Note Assessment/Plan: Assessment/Plan: 51 Y M c parkinsonian symptoms, possible Jona's, + psychiatric history, s/p open resection of Zenker's diverticulum. Seen by myself and Dr. Benton today. Seems to be at mental status baseline. Wound ok. Julianna removed. No more fever. Now on unasyn. Possibly aspiration PNA although WBCs ok and CXR largely normal (possible tiny infiltrate). Appreciate medicine input. Plan for PO abx and broncodilators x 5 d upon d/c. Dispo: likely tomorrow. S: no pain. still feels like he has to push on his throat in order to swallow effectively O: alert, appropriate, nad mmm, neck inc clean, thin clear yellow drainage from former drain site ctab rrr abd soft 08/03/17 15:10 Objective: Vital Signs Temp Pulse Resp BP Pulse Ox 36.8 C 89 15 112/73 90 L 08/03/17 11:31 08/03/17 11:31 08/03/17 11:31 08/03/17 11:31 08/03/17 11:31 Microbiology 08/02/17 16:12 Respiratory Panel (PCR) - Final Nasal, Sinus - Swab Human Rhinovirus/Enterovirus Laboratory Results 08/03/17 05:15 08/01/17 09:31 08/02/17 08/03/17 08/04/17 05:59 05:59 05:59 Intake Total 410 Output Total 50 Balance 410 -50 ICD10 Worksheet Patient Problems: Problems Problem Status Onset Chest pain Acute
--- NOTE | 2017-08-03 16:07 | ASMTCMCOM ---
CM Note CM Note Notes: CM met w/ pt for dispo planning. Pt was lucid during our interaction. Pts ideal plan is to d/c home w/ HC. CM started ULTC-100 form. CM attempted to have pt sign it but pt was asleep with CPAP and eye mask on. Pt is agreeable to having a referral made to [facility]. CM faxed over referral to [facility]. CM notified Tracy to start a LTC Medicaid application. CM to follow. Date Signed: 08/03/2017 04:06 PM Electronically Signed By:ANDRESSA Rivera
[2017-08-03] MEDS: cloZAPine 100 MG TAB PO SCH (20:50)
[2017-08-04] MEDS: CYCLOBENZAPRINE 10 MG TAB PO PRN (00:05)
[2017-08-04] MEDS: AMPICILLIN/SULBACTAM 1.5 GM in NS 50 ML IV SCH ×2 (04:57→11:35)
[2017-08-04] MEDS: ACETAMINOPHEN 325 MG TAB PO PRN ×2 (04:58→11:08)
[2017-08-04 07:48] VITALS: RESP 15
[2017-08-04] MEDS ORDERED: ALBUTEROL 60 PUFFS/8 GM MDI IH PRN (09:00)
--- NOTE | 2017-08-04 09:18 | HOSPPROG ---
Hospitalist Progress Note Assessment/Plan: 51-year-old male with probable aspiration postoperatively due to sedation while eating. He was febrile yesterday but is afebrile today and has not had any respiratory difficulties. He continues to have a harsh cough. Respiratory panel shows rhinovirus only. He was placed on Unasyn and bronchodilators yesterday and is improved. Today continues to have cough -aspiration pneumonia now improving. SaO2 is good on room air. Plan:-continue antibiotics, will change to amoxicillin for 5 more days, then stop -Add bronchodilators of Albuterol qid when discharged to use for 7 days post discharge -will add duonebs until discharge. -suggest pulmonary followup on discharge: Patient history consistent with intermittent bronchospasm; h/o OSAS -He has O2 at night, does not need it during the day as SaO2 on room air is 90% -hypertension: Currently well controlled on usual medications. -hallucinations: Both auditory and visual. The seem to have improved as he is receiving his clozapine on a regular basis. -OSAS: Patient is using his CPAP with oxygen successfully and sleeping well. Plan: Continue his current care. Pulmonary referral added to discharge plan Discussed with surgery Carolina Dennis Subjective: Reports he feels better. Continues to have cough, now harsh and minimally productive of scant white sputum. No fever, chest pain, SOB Objective: Vital Signs Temp Pulse Resp BP Pulse Ox 36.9 C 87 15 117/77 90 L 08/04/17 07:41 08/04/17 07:41 08/04/17 07:41 08/04/17 07:41 08/04/17 07:41 Laboratory Results 08/03/17 05:15 08/01/17 09:31 08/03/17 08/04/17 08/05/17 05:59 05:59 05:59 Intake Total 410 200 Output Total 1350 Balance 410 -1150 - Time Spent With Patient Time Spent with Patient: greater than 35 minutes Time Spent with Patient: Greater than 35 minutes spent on this patients care, greater than 50% of time spent counseling, educating, and coordinating care regarding the above mentioned plan. - Pending Discharge Pending Discharge Within 24 Hours: Yes Pending Discharge Date: 08/05/17 Pending Discharge Time: 11:00 - Physical Exam Constitutional: no apparent distress, obese Eyes: PERRL Ears, Nose, Mouth, Throat: moist mucous membranes, hearing normal Cardiovascular: regular rate and rhythym, no murmur, rub, or gallop Respiratory: other (harsh BS and harsh cough. No wheezing, no rales, no rhonchi ) Gastrointestinal: normoactive bowel sounds, soft, non-tender abdomen, no palpable masses Genitourinary: no bladder fullness Skin: warm Musculoskeletal: full muscle strength Neurologic: AAOx3, CN II-XII Intact Psychiatric: interacting appropriately, other (no hallucinations reported) ICD10 Worksheet Patient Problems: Problems Problem Status Onset Chest pain Acute
[2017-08-04] MEDS: ENOXAPARIN 40 MG/0.4 ML SYR SC SCH (09:29)
[2017-08-04] MEDS: VENLAFAXINE HCL 75 MG TAB PO SCH (09:29)
[2017-08-04] MEDS: AMANTADINE HCL 100 MG CAP PO SCH (09:29)
[2017-08-04] MEDS: DOCUSATE SODIUM 100 MG CAP PO SCH (09:29)
[2017-08-04] MEDS: PANTOPRAZOLE SODIUM 40 MG TAB PO SCH (09:29)
[2017-08-04] MEDS: PROPRANOLOL HCL 20 MG TAB PO SCH (09:29)
[2017-08-04] MEDS: TAMSULOSIN HCL 0.4 MG CAP PO SCH (09:29)
[2017-08-04] MEDS: BENZTROPINE MESYLATE 1 MG TAB PO SCH (09:29)
[2017-08-04] MEDS: Mirabegron [Myrbetriq] 50 MG PO SCH (09:30)
[2017-08-04] MEDS ORDERED: ALBUTEROL 200 PUFFS/18 GM MDI IH PRN (09:31)
--- NOTE | 2017-08-04 09:56 | PDIAF ---
- Diagnosis Diagnosis: zenkers diverticulum Code Status: Full Code - Medication Management Discharge Medications: Medications to Continue on Transfer Tamsulosin HCl [Flomax 0.4 MG (*)] 0.4 mg PO DAILY 11/25/15 [Last Taken 06:30] clonazePAM [Klonopin (*)] 0.5 mg PO BID PRN 11/25/15 [Last Taken 07/23/17] Amantadine HCl [Amantadine] 100 mg PO BID 09/11/16 [Last Taken 07/27/17 06:30] Benztropine Mesylate [Cogentin] 1 mg PO BID 09/11/16 [Last Taken 07/27/17 06:30] Mirabegron [Myrbetriq] 50 mg PO DAILY 09/11/16 [Last Taken 07/27/17 06:30] Propranolol HCl [Inderal 20mg (*)] 20 mg PO BID 09/11/16 [Last Taken 07/27/17 06 :30] Rabeprazole Sodium 20 mg PO BID 09/11/16 [Last Taken 07/27/17 06:30] cloZAPine [Clozaril (*)] 250 mg PO HS 09/11/16 [Last Taken 07/26/17] Acetaminophen [Tylenol 325mg (*)] 325 mg PO DAILY PRN 07/27/17 [Last Taken Unknown] Cyclobenzaprine [Flexeril 10 MG (*)] 10 mg PO TID PRN 07/27/17 [Last Taken 07/26 22:00] Hyoscyamine Sulfate [Levsin, Hyomax-Sl 0.125 mg (*)] 0.125 mg SL DAILY PRN 07/27 [Last Taken 07/26/17 22:00] Sucralfate [Carafate 1 GM (*)] 1 gm PO TIDMEAL 07/27/17 [Last Taken 07/25/17] Venlafaxine HCl [Venlafaxine 75MG (*)] 75 mg PO DAILY 07/27/17 [Last Taken 07/27] Albuterol [Proventil Inhaler HFA (*)] 1 - 2 puffs IH Q4H #1 mdi 08/04/17 [Last Taken Unknown] Albuterol [Proventil Inhaler HFA (*)] 2 puffs IH QID PRN #1 mdi 08/04/17 [Last Taken Unknown] Amoxicillin Trihydrate [Amoxil] 500 mg PO BID #10 cap 08/04/17 [Last Taken Unknown] Amoxicillin [Amoxicillin] 500 mg PO BID 5 Days #10 tab.chew 08/04/17 [Last Taken Unknown] Discharge Medications: Refer to the Discharge Home Medication list for PRN reason. - Orders Services needed: Home Care, Registered Nurse, Physical Therapy Home Care Face to Face: I certify that this patient was under my care and that I had the required [id number] encounter meeting the encounter requirements on the discharge day. My findings support the fact that the patient is homebound as defined in Home Care Face to Face Continued: CMS Chapter 7 Medicare Benefits Manual 30.1.1 , The condition of the patient is such that there exists a normal inability to leave home and consequently, leaving home would require a considerable and taxing effort. Diet Recommendation: no restrictions on diet Diet Texture: Dysphagia 2 - Mechanically Altered - Chopped, Ground, Thin Liquids , Meds Whole w/Liquids - Follow Up Care Current Providers and Referrals: Nhan Engel MD [Primary Care Provider] - Bill Benton MD [Medical Doctor] - follow up in 10 days (please call for an appt.) Mahin Crenshaw MD [Medical Doctor] - follow up in 2 weeks (See Dr Crenshaw for Pulmonary care)
[2017-08-04] MEDS ORDERED: POLYETHYLENE GLYCOL 3350 17 GM PKT PO PRN (10:04)
[2017-08-04] MEDS ORDERED: BISACODYL 10 MG SUPP PR PRN (10:04)
[2017-08-04] MEDS ORDERED: MAGNESIUM HYDROXIDE 30 ML UDCUP PO PRN (10:04)
[2017-08-04] MEDS ORDERED: LACTULOSE 20 GM/30 ML UDCUP PO PRN (10:04)
--- NOTE | 2017-08-04 10:07 | SOAPPROG ---
SOAP Progress Note Assessment/Plan: Assessment: 51 Y M c parkinsonian symptoms, +psychiatric history, s/p open resection of Zenker's diverticulum. Dispo: to home today. Set up with PT and home RN. S: Pt c/o some constipation. Last recorded BM wednesday. Discussed miralax and colace. O: Afebrile Showering, NAD MMM neck incision c/d/i with steri strips. abd soft +BS Objective: Vital Signs Temp Pulse Resp BP Pulse Ox 36.9 C 77 15 117/77 90 L 08/04/17 07:41 08/04/17 09:29 08/04/17 07:41 08/04/17 09:29 08/04/17 07:41 Laboratory Results 08/03/17 05:15 08/01/17 09:31 08/03/17 08/04/17 08/05/17 05:59 05:59 05:59 Intake Total 410 200 Output Total 1350 Balance 410 -1150 ICD10 Worksheet Patient Problems: Problems Problem Status Onset Chest pain Acute
--- NOTE | 2017-08-04 11:43 | ASMTCMCOM ---
CM Note CM Note Notes: Spoke w/pt re; dc poc. Pt declines stay at rehab, does not want to stay the 30 days. States has RNHitesh who comes every Wednesday and a woman comes to help clean. KELLEN spoke w/ RODERICK Wilson at [facility] who set up [facility] to set up homecare PT/OT but should keep RN through [facility]. Also has roomates that live upstairs that can come to take him home. Date Signed: 08/04/2017 11:42 AM Electronically Signed By:Therese Christopher RN
[2017-08-04 11:51] VITALS: BP 103/72; PULSE 88; TEMP 98; O2SAT 91
--- NOTE | 2017-08-04 13:23 | ASMTCMCOM ---
CM Note CM Note Notes: Spoke w/Moni at [facility], can take pt for home PT and will evaluate for further needs. CM also spoke w/home RN through [facility] and he will be out to see pt tomorrow, dc paperwork faxed to Miri at [facility] and Katie at [facility] notified. Date Signed: 08/04/2017 01:22 PM Electronically Signed By:Therese Christopher RN
--- NOTE | 2017-08-04 14:30 | GOP ---
[f rep st] OPERATIVE REPORT DATE OF OPERATION: 07/27/2017 SURGEON: Bill Benton MD WRAPPER OFF: LORETTA Mata. ANESTHESIOLOGIST: Liz Sherman MD. PREOPERATIVE DIAGNOSIS: Zenker's diverticulum. POSTOPERATIVE DIAGNOSIS: Zenker's diverticulum. PROCEDURE PERFORMED: Zenker's diverticulectomy with cricomyotomy. FINDINGS: The patient was found to have a large well-defined Zenker's diverticulum extending to the left of the esophagus, but arising in the midline of the esophagus. DESCRIPTION OF PROCEDURE: The patient was taken to the operating room where he received satisfactory general endotracheal anesthesia by Dr. Sherman. He was placed in a supine position, prepped and drape d in the usual sterile fashion. A longitudinal incision was made along the anterior border of the ry rnocleidomastoid muscle on the left side of the neck. Dissection extended down through the platysma a nd superficial fascia. The omohyoid muscle was divided with electrocautery. The thyroid was retracted medially and careful dissection was done medial to the carotid sheath and the diverticulum was ident ified and dissected free from surrounding structures with care to avoid injury to the recurrent laryn geal nerve. NG tube was passed down the esophagus to help delineate the anatomy. Diverticula were ske letonized back to the wall of the esophagus. It was then divided with a TODD stapler and closure was t hen tested with installation of air and instillation with methylene blue with no evidence of any leak age. The cricopharyngeus muscle was then elevated up and divided for several cm, exposing the submuco sa of the esophagus. Diverticular closure was then oversewn, as well with some 3-0 Vicryl sutures. A quarter-inch Elizabeth drain was brought out through a separate stab incision and placed in the retroph aryngeal area and the wound was then closed in layers using 3-0 Vicryl for the cervical fascia and 3- 0 Vicryl for the platysma and subcutaneous tissue and a 4-0 Monocryl subcuticular stitch for the skin . All layers were infiltrated with 0.5% Marcaine. He tolerated procedure well and was taken to the recovery room in good condition. There were no compl ications. /[id number]/MODL
[2017-08-04] MEDS ORDERED: SENNOSIDES/DOCUSATE SODIUM TAB PO SCH (21:00)
== END 2017-08-04 16:32 | disposition home health service (06) | DRG 326 ==
LOC: F3E 07:08 → OBSVTOIN 07-28 16:15 → F3E 07-29 16:58
PROVIDERS: ADMIT Surgery; ATTEND Surgery
PROC: 0DB50ZZ Excision of Esophagus, Open Approach (ICD-10-PCS; principal; 2017-07-27 09:15)
DX: K22.5 Diverticulum of esophagus, acquired (principal); J69.0 Pneumonitis due to inhalation of food and vomit; R44.0 Auditory hallucinations; R44.1 Visual hallucinations; I10 Essential (primary) hypertension; G20 Parkinson's disease; G47.33 Obstructive sleep apnea (adult) (pediatric)
CPT/HCPCS: 92523-GN; 92526-GN; 92610-GN; 92611-GN; 97110-GP; 97116-GP; 97162-GP; 97166-GO; 97530-GO; 97530-GP; 97535-GO; G0378; J0690; J1170; J1650; J2250; J2704; J3010

== ENCOUNTER → 2017-09-15 | Outpatient (CLI) | payer MEDICAID | LOC: FIMAGING 08:02 | PROVIDERS: ATTEND Internal Medicine Gastroenterology | DX: K22.5 Diverticulum of esophagus, acquired (principal); K22.4 Dyskinesia of esophagus ==

== ENCOUNTER → 2017-09-22 | Outpatient (CLI) | payer MEDICAID | LOC: FIMAGING 06:51 | PROVIDERS: ATTEND Psychiatry & Neurology Neurology | DX: M51.26 Other intervertebral disc displacement, lumbar region (principal) ==

== ENCOUNTER → 2017-09-22 | Outpatient (CLI) | payer MEDICAID | LOC: FIMAGING 13:03 | PROVIDERS: ATTEND Internal Medicine Pulmonary Disease | DX: R06.00 Dyspnea, unspecified (principal) ==

== ENCOUNTER → 2017-10-07 | Outpatient (CLI) | payer MEDICAID | LOC: FIMAGING 07:30 | PROVIDERS: ATTEND Physician Assistant | DX: K31.84 Gastroparesis (principal) | CPT/HCPCS: 78264; A9541 ==

== ENCOUNTER 2018-01-15 19:56 | Inpatient (IN) | payer MEDICAID ==
[2018-01-15] MEDS ORDERED: IPRATROPIUM/ALBUTEROL 3 ML DEYVIAL ONE (20:26)
[2018-01-15] MEDS ORDERED: IPRATROPIUM/ALBUTEROL 3 ML DEYVIAL IH ONE (20:28)
[2018-01-15 20:47] LABS: PLATELET COUNT 242 10^3/uL (150-400)
[2018-01-15] MEDS ORDERED: ALBUTEROL 3 ML DEYVIAL ONE (20:58)
[2018-01-15] MEDS ORDERED: methylPREDNISolone SOD SUCC 125 MG/2 ML VIAL ONE (20:59)
[2018-01-15] MEDS ORDERED: methylPREDNISolone SOD SUCC 125 MG/2 ML VIAL IVP ONE ×2 (21:01)
[2018-01-15] MEDS ORDERED: NS IV ONE (21:07)
[2018-01-15] MEDS ORDERED: ASPIRIN 81 MG CHEWABLE TAB ONE (21:07)
--- NOTE | 2018-01-15 21:14 | CPEKG ---
Heart Rate: 91 RR Interval: 659 P-R Interval: 164 QRSD Interval: 94 QT Interval: 344 QTC Interval: 424 P [place]: 33 QRS [place]: 0 T Wave [place]: 25 EKG Severity - NORMAL ECG - EKG Impression: SINUS RHYTHM Electronically Signed By: Cass South 16-Jan-2018 00:46:07
--- NOTE | 2018-01-15 21:17 | EDPHY ---
H & P Stated Complaint: CHEST COLD X 1 WEEK - Personal History Current Tetanus Diphtheria and Acellular Pertussis (TDAP): Yes - Medical/Surgical History Hx Asthma: Yes Hx Chronic Respiratory Disease: Yes Hx Diabetes: No Hx Cardiac Disease: No Hx Renal Disease: No Hx Cirrhosis: No Hx Alcoholism: No Hx HIV/AIDS: No Hx Splenectomy or Spleen Trauma: No Other PMH: PMH: HTN, wears CPAP, sleep apnea, anxiety, benign tumors, tremor, esoph ulcer, panic, depression, psoriosis, conact dermatitis around sock line, Parkinson's, Tardive Dyskinesia, hallucinations, OCD, diverticulitis, GASTRO PARESIS, RESTRICTED PULMONARY - Social History Smoking Status: Never smoked <Sean Almazan - Last Filed: 01/15/18 22:54> <Cass South - Last Filed: 01/16/18 21:23> Time Seen by Provider: 01/15/18 20:30 HPI/ROS: Chief complaint: Cold symptoms, trouble breathing History of present illness: This is a 52-year-old male who presents to the emergency department for evaluation of cold symptoms. Symptoms are worsening. He is now having trouble breathing. He reports the sudden onset of symptoms approximately 1 week ago. Initially with fever, and body aches. Symptoms have progressed and now has a deep cough with sputum. He feels short of breath. Over the last day he has had to use his CPAP machine that he normally only uses at night during the day to try to breathe better. Review of systems: A 10 point review of systems was obtained and other than described above was negative (Sean Almazan) - Physical Exam Exam: General Appearance: Alert, unwell. Eyes: Pupils equal and round no pallor or injection. ENT, Mouth: Mucous membranes moist. Respiratory: Mild dyspnea. Diffuse rhonchi and wheezing. Cardiovascular: Regular rate and rhythm. Gastrointestinal: Abdomen is soft and non tender, no masses, bowel sounds normal. Neurological: Alert and oriented x4. Strength and sensation intact and symmetrical. Skin: Warm and dry, no rashes. Musculoskeletal: Neck is supple non tender. Extremities are symmetrical, full range of motion. Psychiatric: Patient is oriented X 3, there is no agitation. (Sean Almazan) Constitutional: Initial Vital Signs Temperature (C) 36.9 C 01/15/18 20:04 Heart Rate 117 H 01/15/18 20:04 Respiratory Rate 22 H 01/15/18 20:04 Blood Pressure 126/107 H 01/15/18 20:04 O2 Sat (%) 95 01/15/18 20:04 O2 Delivery Mode Nasal Cannula O2 (L/minute) 3 Allergies/Adverse Reactions: divalproex sodium Allergy (Unknown, Verified 01/16/18 16:22) Dyspnea,nausea,spasms NSAIDS (Non-Steroidal Anti-Inflamma [NSAIDS (Non-Steroidal Anti-Inflammatory Drug)] Allergy (Unknown, Verified 01/16/18 16:33) may cause bleeding chlorpromazine HCl [From Thorazine] Allergy (Verified 01/16/18 16:33) duloxetine HCl [From Cymbalta] Allergy (Verified 01/15/18 20:02) hydrocodone bitartrate [From Vicodin] Allergy (Verified 01/15/18 20:02) meperidine HCl [From Demerol] Allergy (Verified 01/15/18 20:02) zolpidem tartrate [From Ambien] Allergy (Verified 01/15/18 20:02) chlorpromazine HCl Allergy (Unknown, Uncoded 01/15/18 20:02) duloxetine HCl Allergy (Unknown, Uncoded 01/15/18 20:02) hydrocodone bitartrate Allergy (Unknown, Uncoded 01/15/18 20:02) meperidine HCl Allergy (Unknown, Uncoded 01/15/18 20:02) zolpidem tartrate Allergy (Unknown, Uncoded 01/15/18 20:02) Home Medications: Medication Instructions Recorded Tamsulosin HCl [Flomax 0.4 MG (*)] 0.4 mg PO DAILY 11/25/15 clonazePAM [Klonopin (*)] 0.5 mg PO BID PRN 11/25/15 Mirabegron [Myrbetriq] 50 mg PO DAILY 09/11/16 Propranolol HCl [Inderal 20mg (*)] 20 mg PO BID 09/11/16 cloZAPine [Clozaril (*)] 250 mg PO HS 09/11/16 Acetaminophen [Tylenol 325mg (*)] 325 mg PO DAILY PRN 07/27/17 Cyclobenzaprine [Flexeril 10 MG 10 mg PO TID PRN 07/27/17 (*)] Methocarbamol [Robaxin 750 mg (*)] 1,500 mg PO TID PRN 01/15/18 Omeprazole 40 mg PO BID 01/15/18 QUEtiapine FUMARATE [Seroquel 25 25 mg PO HS 01/15/18 mg (*)] Valbenazine Tosylate [Ingrezza] 160 mg PO HS 01/15/18 Medical Decision Making - Diagnostics Imaging: I viewed and interpreted images myself <Sean Almazan - Last Filed: 01/15/18 22:54> <Cass South - Last Filed: 01/16/18 21:23> ED Course/Re-evaluation: Patient seen in conjunction with my secondary supervising physician Dr. Cass South. Patient presents to the emergency department with worsening cold symptoms and trouble breathing. He did trigger sepsis protocol. Ultimately triggered severe sepsis. He appears to be suffering from an RSV bronchitis/ bronchiolitis. Symptomatically treated with nebulizers and fluid with improvement in symptoms. Lactate normalized. As this appears to be a viral illness antibiotics are not started. Further, while in the emergency department he did develop chest pain. He was not given aspirin given NSAID allergy. Troponin and EKG unremarkable. He did have some momentary episodes of what appeared to be syncope although they only last for few seconds. Unclear etiology. He will be admitted to the hospitalist service, Dr. Alaniz for further evaluation and care. (Sean Almazan) Differential Diagnosis: Included but not limited to pneumonia, bronchitis, bronchiolitis, influenza, sepsis (Sean Almazan) Other Provider: 2114: I evaluated and participated in the management of the patient. I also evaluated the patient independently. My co-signature indicates that I have reviewed this chart and I agree with the findings and plan of care as documented. My personal H&P findings include: 52-year-old male with a history of sleep apnea and parkinsonism resulting in neurologic restrictive pulmonary disease, followed by Dr. Crenshaw, presents reporting upper respiratory infection symptoms x5 days with worsening shortness of breath over the last 24-48 hours. Patient reports he has been using his CPAP machine during the day to help with this shortness of breath. Unclear if he has been running a fever. On examination the patient looks somewhat unwell, tachypneic, with prolonged expiratory phase. Patient also has very pronounced wheezing and a wheezy cough. Patient was placed on continuous neb initially. Screening labs for sepsis were drawn. Patient's lactic acid is 2.5. Severe Sepsis/Septic Shock Care Note The patient presents to the ED with RSV respiratory infection identified as an acute infection. The patient did have evidence of end-organ dysfunction and met criteria for severe sepsis. This condition was identified by myself at 2116. The patients vital signs are 141/91, heart rate 95, respiratory rate 25, O2 sat 98% on 6 L. The patient has a venous lactic acid performed within 3 hours of the identification of severe sepsis which was found to be 2.5. The patient has blood cultures drawn. His RSV was positive. Influenza was negative. No antibiotics were administered secondary to no infiltrate on the chest x-ray and patient's positive RSV. He did receive 30 cc/kilos bolus of IV saline in response to his elevated lactic acid. Repeat lactic acid was 1.1. ( Cass South) - Data Points Laboratory Results: Laboratory Results 01/16/18 04:46 01/16/18 04:46 01/16/18 11:28 PT 13.6 SEC SEC (12.0-15.0) INR 1.02 (0.83-1.16) APTT 28.1 SEC SEC (23.0-38.0) Medications Given: Albuterol (Proventil Neb) 3 ml IH QID HAO Stop: 07/15/18 05:59 Last Admin: 01/16/18 15:09 Dose: 3 ml Clozapine (Clozaril) 250 mg PO HS HAO Stop: 07/15/18 00:59 Last Admin: 01/16/18 21:03 Dose: 250 mg Enoxaparin Sodium (Lovenox) 40 mg SC DAILY HAO Stop: 07/15/18 08:59 Last Admin: 01/16/18 08:49 Dose: 40 mg Guaifenesin (Mucinex) 1,200 mg PO BID HAO Stop: 07/15/18 20:59 Last Admin: 01/16/18 21:05 Dose: 1,200 mg Sodium Chloride (Ns) 1,000 mls @ 75 mls/hr IV CONT HAO Stop: 07/15/18 16:29 Last Admin: 01/16/18 17:00 Dose: 1,000 mls Miscellaneous Medication (Mirabegron [Myrbetriq]) 50 mg PO DAILY HAO Stop: 07/15/18 08:59 Last Admin: 01/16/18 08:51 Dose: Not Given Miscellaneous Medication (Valbenazine Tosylate [Ingrezza]) 160 mg PO HS [facility] Stop: 07/15/18 00:59 Last Admin: 01/16/18 04:05 Dose: Not Given Pantoprazole Sodium (Protonix) 40 mg PO DAILY HAO Stop: 07/15/18 08:59 Last Admin: 01/16/18 08:50 Dose: 40 mg Prednisone (Prednisone) 40 mg PO DAILY HAO Stop: 07/15/18 08:59 Last Admin: 01/16/18 08:51 Dose: 40 mg Quetiapine Fumarate (Seroquel) 25 mg PO HS [facility] Stop: 07/15/18 00:59 Last Admin: 01/16/18 21:05 Dose: 25 mg Tamsulosin HCl (Flomax) 0.4 mg PO DAILY HAO Stop: 07/15/18 08:59 Last Admin: 01/16/18 08:51 Dose: 0.4 mg Discontinued Medications Albuterol/Ipratropium (Duoneb) 3 ml IH EDNOW ONE Stop: 01/15/18 20:29 Last Admin: 01/15/18 20:29 Dose: 3 ml Sodium Chloride (Ns) 3,700 mls @ 7,400 mls/hr 30 ml/kg infuse over 30 min ( 3700 ml) IV EDNOW ONE PRN Reason: Protocol Stop: 01/15/18 21:36 Last Admin: 01/15/18 21:08 Dose: 3,700 mls Methylprednisolone Sodium Succinate (Solu-Medrol) 125 mg IVP EDNOW ONE Stop: 01/15/18 21:02 Last Admin: 01/15/18 21:02 Dose: 125 mg Methylprednisolone Sodium Succinate (Solu-Medrol) 125 mg IVP EDNOW ONE Stop: 01/15/18 21:02 Last Admin: 01/15/18 21:06 Dose: 125 mg Departure <Sean Almazan - Last Filed: 01/15/18 22:54> <Cass South - Last Filed: 01/16/18 21:23> - Departure Disposition: [facility] Acute Clinical Impression: Acute bronchitis Qualifiers: Bronchitis organism: RSV Qualified Code(s): J20.5 - Acute bronchitis due to respiratory syncytial virus Exacerbation of asthma Qualifiers: Asthma severity: moderate Asthma persistence: persistent Qualified Code(s): J45.41 - Moderate persistent asthma with (acute) exacerbation Condition: Fair Report Scribed for: Cass South Report Scribed by: Aida Walker Date of Report: 01/15/18 Time of Report: 21:35 <Cass South - Last Filed: 01/16/18 21:23>
[2018-01-15] MEDS ORDERED: ONDANSETRON 4 MG/2 ML VIAL IVP PRN (22:16)
[2018-01-15] MEDS ORDERED: ONDANSETRON DISINTEGRATING 4 MG TAB PO PRN (22:16)
[2018-01-15] MEDS ORDERED: ALBUTEROL 3 ML DEYVIAL IH PRN (22:16)
[2018-01-16] MEDS ORDERED: CYCLOBENZAPRINE 10 MG TAB PO PRN (00:48)
[2018-01-16] MEDS ORDERED: METHOCARBAMOL 750 MG TAB PO PRN (00:48)
[2018-01-16] MEDS: QUEtiapine FUMARATE 25 MG TAB PO SCH ×2 (01:33→21:05)
[2018-01-16] MEDS: cloZAPine 100 MG TAB PO SCH ×2 (01:33→21:03)
--- NOTE | 2018-01-16 02:46 | PDGENHP ---
History and Physical - Chief Complaint Shortness of breath - History of Present Illness 52 yo M w/ hx of drug-induced PD, RUBIN, ?neuromuscular respiratory disease, and schizophrenia presents with shortness of breath. Patient developed symptoms on the day prior to presentation when he noticed a cough. His cough progressed in severity and evolved into severe shortness of breath. He came to the ED when his cough and shortness of breath became difficult to bear. Upon arrival in the ED he was noticed to have a significant wheeze and hypoxia. He usually wears 2 L O2 only at night with his CPAP. He has no formal hx of asthma or COPD. He is followed by Dr. Crenshaw for dyspnea, which may be related to neuromuscular weakness per his documentation. History Information - Allergies/Home Medication List Allergies/Adverse Reactions: divalproex sodium Allergy (Unknown, Unverified 01/15/18 20:02) NSAIDS (Non-Steroidal Anti-Inflamma [NSAIDS (Non-Steroidal Anti-Inflammatory Drug)] Allergy (Unknown, Unverified 01/15/18 20:02) chlorpromazine HCl [From Thorazine] Allergy (Verified 01/15/18 20:02) duloxetine HCl [From Cymbalta] Allergy (Verified 01/15/18 20:02) hydrocodone bitartrate [From Vicodin] Allergy (Verified 01/15/18 20:02) meperidine HCl [From Demerol] Allergy (Verified 01/15/18 20:02) zolpidem tartrate [From Ambien] Allergy (Verified 01/15/18 20:02) chlorpromazine HCl Allergy (Unknown, Uncoded 01/15/18 20:02) duloxetine HCl Allergy (Unknown, Uncoded 01/15/18 20:02) hydrocodone bitartrate Allergy (Unknown, Uncoded 01/15/18 20:02) meperidine HCl Allergy (Unknown, Uncoded 01/15/18 20:02) zolpidem tartrate Allergy (Unknown, Uncoded 01/15/18 20:02) Home Medications: Tamsulosin HCl [Flomax 0.4 MG (*)] 0.4 mg PO DAILY 11/25/15 [Last Taken 08:00] clonazePAM [Klonopin (*)] 0.5 mg PO BID PRN 11/25/15 [Last Taken 01/08/18] Mirabegron [Myrbetriq] 50 mg PO DAILY 09/11/16 [Last Taken 01/15/18 08:00] Propranolol HCl [Inderal 20mg (*)] 20 mg PO BID 09/11/16 [Last Taken 01/15/18 08 :00] cloZAPine [Clozaril (*)] 250 mg PO HS 09/11/16 [Last Taken 01/14/18 22:00] Acetaminophen [Tylenol 325mg (*)] 325 mg PO DAILY PRN 07/27/17 [Last Taken 01/13] Cyclobenzaprine [Flexeril 10 MG (*)] 10 mg PO TID PRN 07/27/17 [Last Taken 01/08] Methocarbamol [Robaxin 750 mg (*)] 1,500 mg PO TID PRN 01/15/18 [Last Taken ] Omeprazole 40 mg PO BID 01/15/18 [Last Taken 01/15/18 08:00] QUEtiapine FUMARATE [Seroquel 25 mg (*)] 25 mg PO HS 01/15/18 [Last Taken 22:00] Valbenazine Tosylate [Ingrezza] 160 mg PO HS 01/15/18 [Last Taken 01/14/18 22:00 ] I have personally reviewed and updated: family history, medical history - Past Medical History Additional medical history: Drug-induced PD. Schizophrenia. RUBIN. Anxiety - Surgical History Additional surgical history: Zenker's diverticulum repair 07/18 - Family History Positive for: diabetes type II, hypertension Additional family history: Parkinson's. Sister had emphysema. Denies family hx of asthma - Social History Smoking Status: Never smoked Review of Systems Review of Systems: ROS: 10pt was reviewed & negative except for what was stated in HPI & below Physical Exam Physical Exam: Temp Pulse Resp BP Pulse Ox 36.7 C 86 16 131/86 H 97 01/15/18 23:40 01/15/18 23:40 01/15/18 23:40 01/15/18 23:40 01/15/18 23:40 O2 (L/minute) 2 Constitutional: no apparent distress, obese Eyes: PERRL, EOMI Ears, Nose, Mouth, Throat: moist mucous membranes, no oral mucosal ulcers Cardiovascular: regular rate and rhythym, no murmur, rub, or gallop Respiratory: no respiratory distress, reduced air movement (Prolonged expiratory phase), expiratory wheeze Gastrointestinal: normoactive bowel sounds, soft, non-tender abdomen Skin: warm, normal color Musculoskeletal: full muscle strength, no muscle tenderness Neurologic: AAOx3, CN II-XII Intact Psychiatric: interacting appropriately, not anxious, other (Active auditory and visual hallucinations) Lab Data & Imaging Review 01/15/18 20:35 01/15/18 20:35 WBC 6.25 10^3/uL (3.80-9.50) 01/15/18 20:35 RBC 5.07 10^6/uL (4.40-6.38) 01/15/18 20:35 Hgb 14.7 g/dL (13.7-17.5) 01/15/18 20:35 Hct 42.5 % (40.0-51.0) 01/15/18 20:35 MCV 83.8 fL (81.5-99.8) 01/15/18 20:35 MCH 29.0 pg (27.9-34.1) 01/15/18 20:35 MCHC 34.6 g/dL (32.4-36.7) 01/15/18 20:35 RDW 12.9 % (11.5-15.2) 01/15/18 20:35 Plt Count 242 10^3/uL (150-400) 01/15/18 20:35 MPV 9.4 fL (8.7-11.7) 01/15/18 20:35 Neut % (Auto) 61.3 % (39.3-74.2) 01/15/18 20:35 Lymph % (Auto) 25.6 % (15.0-45.0) 01/15/18 20:35 [place] % (Auto) 8.8 % (4.5-13.0) 01/15/18 20:35 Eos % (Auto) 3.5 % (0.6-7.6) 01/15/18 20:35 Baso % (Auto) 0.5 % (0.3-1.7) 01/15/18 20:35 Nucleat RBC Rel Count 0.0 % (0.0-0.2) 01/15/18 20:35 Absolute Neuts (auto) 3.83 10^3/uL (1.70-6.50) 01/15/18 20:35 Absolute Lymphs (auto) 1.60 10^3/uL (1.00-3.00) 01/15/18 20:35 Absolute Monos (auto) 0.55 10^3/uL (0.30-0.80) 01/15/18 20:35 Absolute Eos (auto) 0.22 10^3/uL (0.03-0.40) 01/15/18 20:35 Absolute Basos (auto) 0.03 10^3/uL (0.02-0.10) 01/15/18 20:35 Absolute Nucleated RBC 0.00 10^3/uL (0-0.01) 01/15/18 20:35 Immature Gran % 0.3 % (0.0-1.1) 01/15/18 20:35 Immature Gran # 0.02 10^3/uL (0.00-0.10) 01/15/18 20:35 VBG Lactic Acid 1.1 mmol/L (0.7-2.1) D 01/15/18 21:55 Turbidity Cancelled 01/15/18 21:01 Sodium 139 mEq/L (135-145) 01/15/18 20:35 Potassium 4.1 mEq/L (3.5-5.2) 01/15/18 20:35 Chloride 103 mEq/L (97-110) 01/15/18 20:35 Carbon Dioxide 22 mEq/l (22-31) 01/15/18 20:35 Anion Gap 14 mEq/L (8-16) 01/15/18 20:35 BUN 14 mg/dL (7-23) 01/15/18 20:35 Creatinine 1.1 mg/dL (0.7-1.3) 01/15/18 20:35 Estimated GFR > 60 01/15/18 20:35 Glucose 140 mg/dL (70-100) H 01/15/18 20:35 Calcium 9.2 mg/dL (8.5-10.4) 01/15/18 20:35 Total Bilirubin 0.7 mg/dL (0.1-1.4) 01/15/18 20:35 Troponin I < 0.012 ng/mL (0.000-0.034) 01/15/18 21:01 Specimen Hemolysis Cancelled 01/15/18 21:01 Nasal Influenza A PCR NEGATIVE FOR FLU A (NEGATIVE) 01/15/18 20:57 Nasal Influenza B PCR NEGATIVE FOR FLU B (NEGATIVE) 01/15/18 20:57 RSV (PCR) RSV DETECTED (NEGATIVE) H 01/15/18 20:57 Imaging Review: Imaging Impressions Chest X-Ray 01/15/18 20:52 IMPRESSION: No evidence for acute cardiopulmonary abnormality. Visualized and Interpreted Chest x-ray results: Yes Chest X-Ray results: no infiltrate Visualized and Interpreted EKG results: Yes EKG Interpretation: Positive for: normal sinsus rhythm Assessment & Plan Assessment: 52 yo M w/ drug-induced PD, ?neuromuscular respiratory disease, schizophrenia, and RUBIN presents with RAD exacerbation from RSV infection. Plan: 1. RAD exacerbation 2/2 RSV - Patient has no formal diagnosis or asthma or COPD ; he is a non-smoker. Diffusely wheezing in ED, improved with steroids and nebulizer treatments. He is followed by Dr. Crenshaw for dyspnea, which may be due to neuromuscular weakness per his documentation. - Albuterol QID luciana + q2h PRN - Prednisone 40 mg qD (would limit this as much as able noting psychiatric disease) 2. AHRF - 2/2 above, now mild only requiring 2 L/min O2. Incentive spirometry, wean O2 as able. 3. Schizophrenia - With active hallucinations although appropriate and cooperative. Will restart home medication regimen. 4. Drug-induced PD - Per discussion with patient, unclear wether his PD-like symptoms are drug-induced or do to organic Parkinson's disease. 5. ?Neuromuscular respiratory disease - Follows with Dr. Crenshaw for dyspnea of unclear etiology. 6. RUBIN - Compliant with nightly CPAP and 2 L O2. Diet - Regular Code - Full Ppx - LMWH Dispo - Admit under observation status
[2018-01-16] MEDS: VALBENAZINE PO SCH ×2 (04:05→22:04)
[2018-01-16 05:21] LABS: PLATELET COUNT 216 10^3/uL (150-400)
[2018-01-16] MEDS: ALBUTEROL 3 ML DEYVIAL IH SCH ×4 (06:19→21:48)
[2018-01-16] MEDS: ENOXAPARIN 40 MG/0.4 ML SYR SC SCH (08:49)
[2018-01-16] MEDS: PANTOPRAZOLE SODIUM 40 MG TAB PO SCH (08:50)
[2018-01-16] MEDS: predniSONE 20 MG TAB PO SCH (08:51)
[2018-01-16] MEDS: TAMSULOSIN HCL 0.4 MG CAP PO SCH (08:51)
[2018-01-16] MEDS: Mirabegron [Myrbetriq] 50 MG PO SCH (08:51)
[2018-01-16 12:50] LABS: INR 1.02 (0.83-1.16); PROTIME(PATIENT) 13.6 SEC (12.0-15.0)
--- NOTE | 2018-01-16 14:49 | ASMTCMCOM ---
CM Note CM Note Notes: Patient admitted for SOB and RAD exacerbation. He has been sleeping all day and been difficult to arouse, so this information is gleaned from the PT note. Patient lives in a house with roommates, and is mostly independent. He has home O2 and a call button in case he falls. PT has recommended a home safety eval, and we will set this up with patient when he is feeling better. Date Signed: 01/16/2018 02:48 PM Electronically Signed By:vIett Diggs RN
--- NOTE | 2018-01-16 15:58 | GCON ---
[f rep st] CONSULTATION THIS IS A CHEST CONSULTATION REASON FOR ADMISSION: Acute respiratory failure, RSV infection. HISTORY OF PRESENT ILLNESS: The patient is a very pleasant, 52-year-old white male, well known to my self, with an extensive past medical history including anxiety, drug-induced Parkinson disease, esoph ageal spasm, irritable bowel syndrome, hypertension, obstructive sleep apnea, for which he is on nasa l CPAP, and essential tremor. In discussion with the patient, he states that he began having symptom s 1 day prior to admission. This began as a cough that progressed to worsening breathlessness, and francisca mcpherson was subsequently seen in the emergency room and was subsequently admitted. He was markedly hypoxem ic and quite wheezy. He is followed in my office for dyspnea as well as his obstructive sleep apnea. Pulmonary function testing is currently pending. Currently he feels somewhat better. He denies an y chest pain, pleuritic-type chest pain, or angina. There is no nausea, vomiting, or diarrhea. PAST MEDICAL HISTORY: As above. PAST SURGICAL HISTORY: He has had a Zenker diverticulum repair. FAMILY HISTORY: Significant for diabetes and hypertension. SOCIAL HISTORY: No history of tobacco use. Infrequent alcohol use. 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 REVIEW OF SYSTEMS: 10-point review of systems was performed and is negative except for what was desc ribed in HPI. MEDICATIONS: At home include tamsulosin, Klonopin, Mirabegron, Inderal, Clozaril, Flexeril, Robaxin, omeprazole, Seroquel, and Ingrezza. PHYSICAL EXAM: VITAL SIGNS: Blood pressure is 142/78, pulse 109, respirations 16, temperature 36.4. Oxygen saturation is 92% on 3 L. GENERAL: He is a moderately overweight, but very pleasant 52-yea r-old white male who is resting comfortably on supplemental oxygen. HEENT: Eyes are PERRL, EOMI. T hroat shows no erythema or tonsillar hypertrophy. NECK: Supple. There is no cervical adenopathy. HEART: Regular rate and rhythm without murmurs, rubs, gallops. LUNGS: Diminished breath sounds. T here is a slight wheeze in the bases. There are no E to A changes. ABDOMEN: Soft, nontender. Med l sounds are present. EXTREMITIES: No clubbing, cyanosis, or edema. LABORATORIES: White count of 6, hemoglobin 13, hematocrit 39, platelet count 216. INR 1.02. Sodium 142, potassium 4.8, chloride 108, CO2 21, BUN 13, creatinine 0.9. Glucose is 211. Influenza A and B are negative. RSV is positive. IMAGING DATA: Chest x-ray reviewed by myself is clear. IMPRESSION: 1. Acute respiratory failure secondary to respiratory syncytial virus infection. 2. Respiratory syncytial virus infection. 3. Reactive airways disease. 4. Drug-induced Parkinson disease. 5. Obstructive sleep apnea, for which he is on continuous positive airway pressure and doing well. RECOMMENDATIONS: 1. Agree with current nebulizer treatments. 2. Agree with current prednisone dose. 3. Continue CPAP at night. 4. DVT and PE prophylaxis. 5. Early ambulation. 6. Wean FiO2 as tolerated. Thank you very much for allowing me to participate in the care of this new patient. Will follow gill stephens with you. /[id number]/MODL
--- NOTE | 2018-01-16 16:13 | HOSPPROG ---
Hospitalist Progress Note Assessment/Plan: DIAGNOSES: -acute hypoxemic respiratory failure -significant wheezing with question of reactive airway disease verses bronchitis -acute RSV infection -dehydration due to above with poor oral intake of fluids at this time -hyperglycemia * High this morning at 211, but was present to a mild degree before steroids in the ER, wonder if he may have some diabetes developing as opposed to hyperglycemia from stress of illness and worse now from steroid -chronic respiratory illness with question of neuro muscular etiology, follows with Dr. Crenshwa in outpatient setting -sleep apnea, uses CPAP for sleep, has his CPAP here Overall the patient is less short breath compared to when he was in the ER with less wheezing but still is wheezing having quite a bit of coughing, poor oral intake of fluids in feeling dry, having a lot of myalgias nasal congestion and sore throat PLANS: -will add some IV hydration -continue steroids and bronchodilators -cough medications -CPAP for sleep -DVT prophylaxis -I have reviewed this case in detail with Dr. Crenshaw his outpatient broom man in asked Dr. Crenshaw to see the patient in consultation. I will review with Dr. Crenshaw after he has seen the patient -will check hemoglobin A1c SUBJECTIVE: Still quite a bit of coughing, myalgias, nasal congestion, sore throat, dyspnea however is a little better on the steroid and bronchodilator so far No appetite and not eating but not vomiting OBJECTIVE Vitals reviewed: Remains intermittently tachycardic as high as 109, regular, otherwise stable vitals without fever Mail Censor, my review: Exam: alert oriented Looks fairly ill and uncomfortable, coughs quite frequently during my visit skin warm dry color ok resps not labored in bed on oxygen though they are labored for a bit after coughing spells lungs bronchitic BSs with some expiratory wheeze at the left lower lobe heart regular abd soft nondistended nontender, bowel sounds present limbs warm, no edema iv site ok Laboratory data reviewed: PCR profile positive for RSV, negative for influenza This morning's metabolic panel positive for a higher glucose greater than 200 Objective: Vital Signs Temp Pulse Resp BP Pulse Ox 36.4 C 98 16 130/68 H 95 01/16/18 15:55 01/16/18 15:55 01/16/18 15:55 01/16/18 15:55 01/16/18 15:55 Laboratory Results 01/16/18 04:46 01/16/18 04:46 01/15/18 01/16/18 01/17/18 06:59 06:59 06:59 Intake Total 1500 Output Total 1225 Balance 275 PT 13.6 SEC (12.0-15.0) 01/16/18 11:28 INR 1.02 (0.83-1.16) 01/16/18 11:28 ICD10 Worksheet Patient Problems: Problems Problem Status Onset Acute bronchitis Acute Exacerbation of asthma Acute Chest pain Acute
[2018-01-16] MEDS ORDERED: NS 1,000 ML IV SCH (16:30)
--- NOTE | 2018-01-16 17:30 | PDMN ---
Medical Necessity Medical necessity: C/M review: est. > 2 MN LOS for eval and TX of acute and persistent hypoxemic respiratory failure, significant wheezing with question of reactive airway disease vs. bronchitis, RSV infection, dehydration, hyperglycemia requiring Pulmonary consult, ongoing IV fluids, oral steroid, inhalers, CPAP for sleep, pulse oximetry, cough medicines, supplemental O2, comorbid chronic respiratory illness with question of neuro muscular etiology, sleep apnea - patient uses CPAP for sleep per 01/16/2018 Hospitalist progress note.
[2018-01-16] MEDS: guaiFENesin 600 MG TAB.ER PO SCH (21:05)
[2018-01-17] MEDS: ALBUTEROL 3 ML DEYVIAL IH SCH ×4 (05:52→19:43)
[2018-01-17] MEDS: PANTOPRAZOLE SODIUM 40 MG TAB PO SCH (10:02)
[2018-01-17] MEDS: predniSONE 20 MG TAB PO SCH (10:02)
[2018-01-17] MEDS: TAMSULOSIN HCL 0.4 MG CAP PO SCH (10:02)
[2018-01-17] MEDS: guaiFENesin 600 MG TAB.ER PO SCH ×2 (10:02→20:30)
[2018-01-17] MEDS: ENOXAPARIN 40 MG/0.4 ML SYR SC SCH (10:02)
[2018-01-17] MEDS: Mirabegron [Myrbetriq] 50 MG PO SCH (10:04)
[2018-01-17] MEDS: clonazePAM 0.5 MG TAB PO PRN (10:25)
[2018-01-17] MEDS: ACETAMINOPHEN 325 MG TAB PO PRN (14:56)
--- NOTE | 2018-01-17 15:36 | ASMTCMCOM ---
CM Note CM Note Notes: Pt feeling better today, much more alert. Met w/pt to discuss dc poc. PT recommending HC PT at this time. Pt lives in basement apartment, mostly independant although he occasionally will ask for help from housemates who live upstairs. Thos housemates will be going out of town at end of week. Pt does not use his walker on stairs; he leaves it on main level and is hoping to get one for his basement level. He does not currently drive, uses [place] and [address]. Pt says he had restaurant general manager, Katie, through [facility] but that she just retired so he is waiting to find out who next director case management will be. Pt has home RN, Hitesh Ba, who comes each Wednesday; he was not sure which agency Hitesh is with but says it was set up through [facility]; pt will get us Hitesh's # tomorrow. Pt has some help (maybe [employer]BS)coming in once every 2 weeks to help with house cleaning. PT recommending HHC at this time but will see how pt progresses. Pt is open to having some home PT if needed. Once we know which agency his home RN is through (pt will give us RN's # tomorrow) then we could set him up w/PT also. CM will follow Date Signed: 01/17/2018 03:36 PM Electronically Signed By:Valeria Mejia RN
--- NOTE | 2018-01-17 16:50 | PDINTPN ---
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 Treated with steroids, nebs and some improvement, but required change from obs to inpatient. * Acute respiratory failure 2/2 RSV- improved today without wheezing. He complained that he thinks the steroids are causing psyxch issues, but was willing to comply given his improvement in his respiratory status. If he maintains stability, I would favor a dose reduction tomorrow. * Asthma- as above and appears stable at the moment. He may benefit from a combined LABA/ICS as well. Started Advair today. * RUBIN- continue CPAP qhs * Subjective: improving today per patient Objective: Vital Signs Temp Pulse Resp BP Pulse Ox 36.6 C 100 18 136/81 H 96 01/17/18 12:00 01/17/18 12:00 01/17/18 12:00 01/17/18 12:00 01/17/18 12:00 Laboratory Results 01/17/18 04:31 01/16/18 01/17/18 01/18/18 05:59 05:59 05:59 Intake Total 1100 980 Balance 1100 980 PT 13.6 SEC (12.0-15.0) 01/16/18 11:28 INR 1.02 (0.83-1.16) 01/16/18 11:28 Physical Exam - Physical Exam General Appearance: alert, no apparent distress, obese EENT: PERRL/EOMI Neck: supple Respiratory: lungs clear, normal breath sounds, No respiratory distress, No accessory muscle use, No wheezing Cardiac/Chest: regular rate, rhythm, No edema Abdomen: non-tender, soft, No distended Skin: normal color, warm/dry, No cyanosis Lymphatic: no adenopathy Extremities: No pedal edema Neuro/Psych: alert, normal mood/affect, oriented x 3 ICD10 Worksheet Patient Problems: Problems Problem Status Onset Acute bronchitis Acute Exacerbation of asthma Acute Chest pain Acute
--- NOTE | 2018-01-17 18:14 | HOSPPROG ---
Hospitalist Progress Note Assessment/Plan: DIAGNOSES: -acute hypoxemic respiratory failure -significant wheezing with question of reactive airway disease verses bronchitis -acute RSV infection -dehydration due to above with poor oral intake of fluids at this time -hyperglycemia * Most of this at present is due to steroids although he does have a mildly elevated hemoglobin A1c and may be developing some early diabetes -chronic respiratory illness with question of neuro muscular etiology, follows with Dr. Crenshaw in outpatient setting -chronic Parkinson's disease -history of Parkinson's medicine induced movement disorder -sleep apnea, uses CPAP for sleep, has his CPAP here Mild notable improvement today overall, still debilitated enough with weakness and dyspnea that he is not able to go home at this time PLANS: -at this point can discontinue IV hydration as he is hydrating orally -continue steroids and bronchodilators -cough medications -CPAP for sleep -DVT prophylaxis -fall risk precautions, physical occupational therapy -will follow his sugars closely here, upon discharge he will need follow up with primary care physician to review for possible diabetes; will begin some therapy in the hospital now while he is on steroid with a goal of keeping his sugars below approximately 180, expect sugars to improve as he comes off steroid SUBJECTIVE: Overall feels less ill today, a bit less cough, stronger, eating better Less short of breath than at presentation but still needing oxygen and with some significant dyspnea, too weak and dyspneic to do any significant walking OBJECTIVE Vitals reviewed: Remains intermittently tachycardic as high as 106, regular, otherwise stable vitals without fever Exam: alert oriented Looks fairly ill and uncomfortable, coughs quite frequently during my visit skin warm dry color ok resps not labored in bed on oxygen lungs still somewhat bronchitic breath sounds abd soft nondistended nontender, bowel sounds present limbs warm, no edema iv site ok Laboratory data reviewed: PCR profile positive for RSV, negative for influenza This morning's metabolic panel notable for continued high glucose on steroids, but his hemoglobin A1c is 6.8 Sodium a bit high this morning at 147 Microbiology data: Blood cultures remain negative to date Objective: Vital Signs Temp Pulse Resp BP Pulse Ox 36.5 C 106 H 18 127/88 H 90 L 01/17/18 16:00 01/17/18 16:00 01/17/18 16:00 01/17/18 16:00 01/17/18 16:00 Laboratory Results 01/17/18 04:31 01/16/18 01/17/18 01/18/18 06:59 06:59 06:59 Intake Total 1100 980 Balance 1100 980 PT 13.6 SEC (12.0-15.0) 01/16/18 11:28 INR 1.02 (0.83-1.16) 01/16/18 11:28 ICD10 Worksheet Patient Problems: Problems Problem Status Onset Acute bronchitis Acute Exacerbation of asthma Acute Chest pain Acute
[2018-01-17] MEDS: FLUTICASONE/SALMETER 250/50MCG DISKUS IH SCH (19:43)
[2018-01-17] MEDS: cloZAPine 100 MG TAB PO SCH (20:30)
[2018-01-17] MEDS: VALBENAZINE PO SCH (20:31)
[2018-01-17] MEDS: QUEtiapine FUMARATE 25 MG TAB PO SCH (22:41)
[2018-01-18] MEDS: ALBUTEROL 3 ML DEYVIAL IH SCH ×4 (04:45→21:56)
[2018-01-18] MEDS: Mirabegron [Myrbetriq] 50 MG PO SCH (09:53)
[2018-01-18] MEDS: PANTOPRAZOLE SODIUM 40 MG TAB PO SCH (09:55)
[2018-01-18] MEDS: TAMSULOSIN HCL 0.4 MG CAP PO SCH (09:55)
[2018-01-18] MEDS: predniSONE 20 MG TAB PO SCH (09:55)
[2018-01-18] MEDS: guaiFENesin 600 MG TAB.ER PO SCH ×2 (09:55→21:15)
[2018-01-18] MEDS: ENOXAPARIN 40 MG/0.4 ML SYR SC SCH (09:56)
[2018-01-18] MEDS: FLUTICASONE/SALMETER 250/50MCG DISKUS IH SCH ×2 (10:31→21:56)
--- NOTE | 2018-01-18 11:02 | CPEKG ---
Heart Rate: 109 RR Interval: 550 P-R Interval: 160 QRSD Interval: 92 QT Interval: 352 QTC Interval: 475 P [place]: 34 QRS [place]: -1 T Wave [place]: -39 EKG Severity - ABNORMAL ECG - EKG Impression: SINUS TACHYCARDIA EKG Impression: PROBABLE INFERIOR INFARCT, AGE INDETERMINATE EKG Impression: CONSIDER ANTERIOR INFARCT Electronically Signed By: Joe Monet 20-Jan-2018 07:32:59
--- NOTE | 2018-01-18 11:28 | HOSPPROG ---
Hospitalist Progress Note Assessment/Plan: # neurologic changes - he has left sided weakness that he relates clearly as old. his mental status is not consistent with an acute CVA (more consistent with psychiatric disease), thus i stopped the stroke alert. 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; will try benztropine in the meantime # esophageal spasm Subjective: called emergently to bedside for a stroke alert; patient was acting normally, then acutely became confused; he relates an at least month long history of left sided weakness; he has not been getting his Ingrezza since admission Objective: Vital Signs Temp Pulse Resp BP Pulse Ox 36.8 C 90 18 124/65 H 93 01/18/18 07:49 01/18/18 10:25 01/18/18 10:25 01/18/18 07:49 01/18/18 10:25 Laboratory Results 01/17/18 04:31 01/17/18 01/18/18 01/19/18 05:59 05:59 05:59 Intake Total 1100 1530 Output Total 400 Balance 1100 1130 PT 13.6 SEC (12.0-15.0) 01/16/18 11:28 INR 1.02 (0.83-1.16) 01/16/18 11:28 35 mins floor/bedside CC time handing acute neurologic changes - Physical Exam Constitutional: uncomfortable (sitting in chair, somewhat jerky movements) Cardiovascular: regular rate and rhythym, no murmur, rub, or gallop Respiratory: no respiratory distress, no rales or rhonchi Gastrointestinal: soft, non-tender abdomen, no palpable masses Skin: warm Neurologic: AAOx3, CN II-XII Intact, other (L side slightly weaker than the right in UE and LE; sensation to light touch intact) ICD10 Worksheet Patient Problems: Problems Problem Status Onset Chest pain Acute Acute bronchitis Acute Exacerbation of asthma Acute
[2018-01-18 12:08] LABS: PLATELET COUNT 207 10^3/uL (150-400)
[2018-01-18] MEDS: BENZTROPINE MESYLATE 2 MG TAB PO SCH ×2 (12:54→21:13)
--- NOTE | 2018-01-18 13:17 | PDINTPN ---
Student Accounts Coordinator Progress Note Assessment/Plan: Assessment/plan: 52 M with known RAD, RUBIN admitted 01/16/18 with URI symptoms and found to have RSV. Treated with steroids, nebs and some improvement, but required change from obs to inpatient. * Acute confusion with possible weakness- I agree that no stroke seemed likely and head CT negative. No TPA. Situation is complicated by known schizophrenia, which may be exacerbated by systemic steroids. * Acute respiratory failure 2/2 RSV- Started Advair without obvious sequelae. Discussed with Dr. Lee and will reduce prednisone to 20/day. Continue Advair and albuterol. * Asthma- as above and appears stable at the moment. * RUBIN- continue CPAP qhs. Abg this am OK * 01/18/18 13:10 Subjective: Stat team followed by stroke alert this am after patient became acutely confused. Objective: Vital Signs Temp Pulse Resp BP Pulse Ox 36.8 C 90 18 124/65 H 93 01/18/18 07:49 01/18/18 10:25 01/18/18 10:25 01/18/18 07:49 01/18/18 10:25 Laboratory Results 01/18/18 12:03 01/18/18 12:03 01/17/18 01/18/18 01/19/18 05:59 05:59 05:59 Intake Total 1100 1530 Output Total 400 Balance 1100 1130 PT 13.6 SEC (12.0-15.0) 01/16/18 11:28 INR 1.02 (0.83-1.16) 01/16/18 11:28 Physical Exam - Physical Exam General Appearance: alert, no apparent distress, obese EENT: PERRL/EOMI Neck: supple Respiratory: lungs clear, normal breath sounds, No respiratory distress, No accessory muscle use Cardiac/Chest: regular rate, rhythm, No edema Abdomen: non-tender, soft, No distended Skin: normal color, warm/dry, No cyanosis Lymphatic: no adenopathy Extremities: No pedal edema Neuro/Psych: alert, normal mood/affect, oriented x 3, cognition abnormalities ( voices?) ICD10 Worksheet Patient Problems: Problems Problem Status Onset Acute bronchitis Acute Exacerbation of asthma Acute Chest pain Acute
--- NOTE | 2018-01-18 14:10 | CPEKG ---
Heart Rate: 96 RR Interval: 625 P-R Interval: 168 QRSD Interval: 98 QT Interval: 352 QTC Interval: 445 P [place]: 56 QRS [place]: -9 T Wave [place]: 60 EKG Severity - BORDERLINE ECG - EKG Impression: SINUS RHYTHM EKG Impression: BORDERLINE T ABNORMALITIES, ANTERIOR LEADS Electronically Signed By: Joe Monet 20-Jan-2018 07:32:53
--- NOTE | 2018-01-18 16:18 | ASMTCMCOM ---
CM Note CM Note Notes: Pt needs his home Ingrezza ([facility] does not have), voicemail left for pt brother Joel to see if he can help. Pt sleeping and unable to be woke when CM tried to get phone for roommate(s). Voicemail left for [facility] to see who gunstock spray unit adjuster is. CM to follow. CM to follow. Date Signed: 01/18/2018 04:17 PM Electronically Signed By:JOANNE Roberts
[2018-01-18] MEDS: cloZAPine 100 MG TAB PO SCH (21:14)
[2018-01-18] MEDS: VALBENAZINE PO SCH (21:17)
[2018-01-18] MEDS: QUEtiapine FUMARATE 25 MG TAB PO SCH (23:28)
[2018-01-19 05:04] LABS: PLATELET COUNT 211 10^3/uL (150-400)
[2018-01-19] MEDS: ALBUTEROL 3 ML DEYVIAL IH SCH ×4 (06:29→22:45)
[2018-01-19] MEDS: predniSONE 20 MG TAB PO SCH (09:51)
[2018-01-19] MEDS: TAMSULOSIN HCL 0.4 MG CAP PO SCH (09:51)
[2018-01-19] MEDS: BENZTROPINE MESYLATE 2 MG TAB PO SCH ×2 (09:51→21:25)
[2018-01-19] MEDS: PANTOPRAZOLE SODIUM 40 MG TAB PO SCH (09:51)
[2018-01-19] MEDS: guaiFENesin 600 MG TAB.ER PO SCH ×2 (09:51→21:24)
[2018-01-19] MEDS: ENOXAPARIN 40 MG/0.4 ML SYR SC SCH (09:52)
[2018-01-19] MEDS: Mirabegron [Myrbetriq] 50 MG PO SCH (10:06)
[2018-01-19] MEDS: FLUTICASONE/SALMETER 250/50MCG DISKUS IH SCH ×2 (10:07→22:45)
[2018-01-19] MEDS: clonazePAM 0.5 MG TAB PO PRN (12:16)
[2018-01-19] MEDS: PROPRANOLOL HCL 20 MG TAB PO SCH ×2 (12:32→21:45)
--- NOTE | 2018-01-19 13:24 | PDINTPN ---
Qa Automation Architect Progress Note Assessment/Plan: Assessment/plan: 52 M with known RAD, RUBIN admitted 01/16/18 with URI symptoms and found to have RSV. Treated with steroids, nebs and some improvement, but required change from obs to inpatient. * Acute confusion with possible weakness on 01/18- I agree that no stroke seemed likely and head CT negative. No TPA. Situation is complicated by known schizophrenia, which may be exacerbated by systemic steroids. * Acute respiratory failure 2/2 RSV- Started Advair without obvious sequelae. Better despite lower prednisone. * Asthma- as above and appears stable at the moment. * RUBIN- continue CPAP qhs. Abg this am OK * Subjective: reports less sob today Objective: Vital Signs Temp Pulse Resp BP Pulse Ox 36.7 C 106 H 18 107/89 H 92 01/19/18 12:33 01/19/18 12:33 01/19/18 12:33 01/19/18 12:33 01/19/18 12:33 Laboratory Results 01/19/18 04:45 01/19/18 04:45 01/18/18 01/19/18 01/20/18 05:59 05:59 05:59 Intake Total 1530 1750 Output Total 400 850 Balance 1130 900 PT 13.6 SEC (12.0-15.0) 01/16/18 11:28 INR 1.02 (0.83-1.16) 01/16/18 11:28 Physical Exam - Physical Exam General Appearance: WD/WN, alert, no apparent distress, obese EENT: PERRL/EOMI Neck: supple Respiratory: lungs clear, normal breath sounds, No respiratory distress, No accessory muscle use, No stridor, No wheezing Cardiac/Chest: regular rate, rhythm, No edema Abdomen: non-tender, soft, No distended Skin: normal color, warm/dry, No cyanosis Lymphatic: no adenopathy Extremities: No pedal edema Neuro/Psych: alert, normal mood/affect, oriented x 3 ICD10 Worksheet Patient Problems: Problems Problem Status Onset Acute bronchitis Acute Exacerbation of asthma Acute Chest pain Acute
--- NOTE | 2018-01-19 15:16 | HOSPPROG ---
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; cont benztropine for now # esophageal spasm Subjective: less SOB today; interacting appropriately Objective: Vital Signs Temp Pulse Resp BP Pulse Ox 36.7 C 106 H 18 107/89 H 92 01/19/18 12:33 01/19/18 12:33 01/19/18 12:33 01/19/18 12:33 01/19/18 12:33 Laboratory Results 01/19/18 04:45 01/19/18 04:45 01/18/18 01/19/18 01/20/18 05:59 05:59 05:59 Intake Total 1530 1750 Output Total 400 850 Balance 1130 900 PT 13.6 SEC (12.0-15.0) 01/16/18 11:28 INR 1.02 (0.83-1.16) 01/16/18 11:28 - Time Spent With Patient Time Spent with Patient: greater than 25 minutes Time Spent with Patient: Greater than 25 minutes spent on this patients care, greater than 50% of time spent counseling, educating, and coordinating care regarding the above mentioned plan. - Physical Exam Constitutional: no apparent distress, appears nourished Cardiovascular: regular rate and rhythym, no murmur, rub, or gallop Respiratory: no respiratory distress, no rales or rhonchi, expiratory wheeze ( mild) Gastrointestinal: normoactive bowel sounds, soft, non-tender abdomen ICD10 Worksheet Patient Problems: Problems Problem Status Onset Chest pain Acute Acute bronchitis Acute Exacerbation of asthma Acute
--- NOTE | 2018-01-19 16:20 | ASMTCMCOM ---
CM Note CM Note Notes: Dipika Ulloa [phone] is pt new [employer] worker, reports pt open [employer] provides emergency alert button, home making with [place] every other week and non-emergent transportation with [place]. Pt not currently open with a skilled home care agency. PT continues to rec home care, pt agreeable and pt address/phone verified. Today pt states he does not want his home medication Ingrezza because he believes he will heal faster without it, he states he talked to Dr. Lee about this. CM to follow. Date Signed: 01/19/2018 04:19 PM Electronically Signed By:JOANNE Roberts
[2018-01-19] MEDS: QUEtiapine FUMARATE 25 MG TAB PO SCH (21:24)
[2018-01-19] MEDS: cloZAPine 100 MG TAB PO SCH (21:25)
[2018-01-19] MEDS: VALBENAZINE PO SCH (21:28)
[2018-01-20] MEDS: ALBUTEROL 3 ML DEYVIAL IH SCH ×4 (05:31→21:46)
[2018-01-20] MEDS: predniSONE 20 MG TAB PO SCH (10:16)
[2018-01-20] MEDS: BENZTROPINE MESYLATE 2 MG TAB PO SCH ×2 (10:16→22:59)
[2018-01-20] MEDS: PANTOPRAZOLE SODIUM 40 MG TAB PO SCH (10:16)
[2018-01-20] MEDS: guaiFENesin 600 MG TAB.ER PO SCH ×2 (10:16→23:00)
[2018-01-20] MEDS: TAMSULOSIN HCL 0.4 MG CAP PO SCH (10:17)
[2018-01-20] MEDS: ENOXAPARIN 40 MG/0.4 ML SYR SC SCH (10:18)
[2018-01-20] MEDS: Mirabegron [Myrbetriq] 50 MG PO SCH (10:20)
[2018-01-20] MEDS: FLUTICASONE/SALMETER 250/50MCG DISKUS IH SCH ×2 (10:48→21:46)
[2018-01-20] MEDS: PROPRANOLOL HCL 20 MG TAB PO SCH ×2 (11:06→23:00)
[2018-01-20] MEDS: ACETAMINOPHEN 325 MG TAB PO PRN (12:42)
--- NOTE | 2018-01-20 13:14 | PDINTPN ---
Overweaver Progress Note Assessment/Plan: Assessment/plan: 52 M with known RAD, RUBIN admitted 01/16/18 with URI symptoms and found to have RSV. Treated with steroids, nebs and some improvement, but required change from obs to inpatient. * Acute confusion with possible weakness on 01/18- I agree that no stroke seemed likely and head CT negative. No TPA. Situation is complicated by known schizophrenia, which may be exacerbated by systemic steroids. * asthma exacerbation 2/2 RSV- Started Advair without obvious sequelae. Better despite lower prednisone. Would complete 2 week course at 20/day. Ready for dc from this perspective. Will sign off- call with questions * RUBIN- continue CPAP qhs. Abg this am OK * Subjective: reports ongoing improvement Objective: Vital Signs Temp Pulse Resp BP Pulse Ox 37.6 C 78 18 104/54 L 93 01/20/18 11:13 01/20/18 11:13 01/20/18 11:13 01/20/18 11:13 01/20/18 11:13 Laboratory Results 01/19/18 04:45 01/19/18 04:45 01/19/18 01/20/18 01/21/18 05:59 05:59 05:59 Intake Total 1750 2250 Output Total 850 Balance 900 2250 PT 13.6 SEC (12.0-15.0) 01/16/18 11:28 INR 1.02 (0.83-1.16) 01/16/18 11:28 Physical Exam - Physical Exam General Appearance: alert, no apparent distress EENT: PERRL/EOMI Neck: supple Respiratory: lungs clear, normal breath sounds, No respiratory distress, No accessory muscle use, No wheezing Cardiac/Chest: regular rate, rhythm, No edema Abdomen: non-tender, soft, No distended Skin: normal color, warm/dry, No cyanosis Lymphatic: no adenopathy Extremities: No pedal edema Neuro/Psych: alert, normal mood/affect, oriented x 3 ICD10 Worksheet Patient Problems: Problems Problem Status Onset Acute bronchitis Acute Exacerbation of asthma Acute Chest pain Acute
--- NOTE | 2018-01-20 18:18 | HOSPPROG ---
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; cont benztropine for now # esophageal spasm Subjective: breathing better; still significant coughing; PT rec's SNF today Objective: Vital Signs Temp Pulse Resp BP Pulse Ox 36.6 C 88 18 120/80 92 01/20/18 15:38 01/20/18 16:45 01/20/18 16:45 01/20/18 15:38 01/20/18 16:45 Laboratory Results 01/19/18 04:45 01/19/18 04:45 01/19/18 01/20/18 01/21/18 05:59 05:59 05:59 Intake Total 1750 2250 1500 Output Total 850 900 Balance 900 2250 600 PT 13.6 SEC (12.0-15.0) 01/16/18 11:28 INR 1.02 (0.83-1.16) 01/16/18 11:28 - Physical Exam Constitutional: no apparent distress Cardiovascular: regular rate and rhythym, no murmur, rub, or gallop Respiratory: no rales or rhonchi, expiratory wheeze (mild), No reduced air movement Gastrointestinal: soft, non-tender abdomen, no palpable masses ICD10 Worksheet Patient Problems: Problems Problem Status Onset Chest pain Acute Acute bronchitis Acute Exacerbation of asthma Acute
[2018-01-20] MEDS: cloZAPine 100 MG TAB PO SCH (22:59)
[2018-01-20] MEDS: QUEtiapine FUMARATE 25 MG TAB PO SCH (23:03)
[2018-01-20] MEDS: VALBENAZINE PO SCH (23:09)
[2018-01-21] MEDS: ALBUTEROL 3 ML DEYVIAL IH SCH ×4 (05:52→21:26)
[2018-01-21] MEDS: PANTOPRAZOLE SODIUM 40 MG TAB PO SCH (10:15)
[2018-01-21] MEDS: predniSONE 20 MG TAB PO SCH (10:15)
[2018-01-21] MEDS: ENOXAPARIN 40 MG/0.4 ML SYR SC SCH (10:15)
[2018-01-21] MEDS: TAMSULOSIN HCL 0.4 MG CAP PO SCH (10:15)
[2018-01-21] MEDS: guaiFENesin 600 MG TAB.ER PO SCH ×2 (10:15→21:38)
[2018-01-21] MEDS: BENZTROPINE MESYLATE 2 MG TAB PO SCH ×2 (10:15→21:37)
[2018-01-21] MEDS: PROPRANOLOL HCL 20 MG TAB PO SCH ×2 (10:16→21:38)
[2018-01-21] MEDS: Mirabegron [Myrbetriq] 50 MG PO SCH (10:18)
[2018-01-21] MEDS: FLUTICASONE/SALMETER 250/50MCG DISKUS IH SCH ×2 (11:25→21:26)
--- NOTE | 2018-01-21 13:40 | HOSPPROG ---
Hospitalist Progress Note Assessment/Plan: 52M with schizophrenia presented with RSV infection and hypoxia. His course was complicated by an acute change in mental status of unclear etiology. 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; cont benztropine for now # esophageal spasm Subjective: still weak and SOB Objective: Vital Signs Temp Pulse Resp BP Pulse Ox 36.8 C 62 18 117/74 98 01/21/18 08:00 01/21/18 11:25 01/21/18 11:25 01/21/18 10:16 01/21/18 11:25 Laboratory Results 01/19/18 04:45 01/21/18 05:00 01/20/18 01/21/18 01/22/18 05:59 05:59 05:59 Intake Total 2250 1500 Output Total 900 Balance 2250 600 PT 13.6 SEC (12.0-15.0) 01/16/18 11:28 INR 1.02 (0.83-1.16) 01/16/18 11:28 - Physical Exam Constitutional: chronically ill appearing Cardiovascular: regular rate and rhythym, no murmur, rub, or gallop Respiratory: no respiratory distress, expiratory wheeze (mild), other (mild decreased BS) Gastrointestinal: soft, non-tender abdomen, no palpable masses ICD10 Worksheet Patient Problems: Problems Problem Status Onset Chest pain Acute Acute bronchitis Acute Exacerbation of asthma Acute
--- NOTE | 2018-01-21 15:10 | ASMTCMCOM ---
CM Note CM Note Notes: CM spoke w/ Dr. Lee regarding d/c POC. CM met w/ pt for dispo planning. The orginial plan was for pt to stay w/ his brother for a few days. Pt reports that is no longer an option. Pts brother will be going to [place]. Pt reports that his roommates are going to be away in [place] for 10 days. Pt reports that he will try to reach out to some friends to see if they can stay w/ him. Pt believes that it would be helpful to have HC. CM spoke w/ Dipika Ulloa at [facility] to see if he is current w/ any HC agencies. Dipika reports that pt has a skilled nurse that comes every Wednesday to help w/ his medications. Dipika reports that this agency does not have PT. Referral sent to a few HC agencies. Pt does not have a preference on HC agency as long as it is covered by Medicaid. CM to follow. Plan: HC, PT Date Signed: 01/21/2018 03:10 PM Electronically Signed By:ANDRESSA Rivera
[2018-01-21] MEDS: ACETAMINOPHEN 325 MG TAB PO PRN (17:58)
[2018-01-21] MEDS: cloZAPine 100 MG TAB PO SCH (21:37)
[2018-01-21] MEDS: QUEtiapine FUMARATE 25 MG TAB PO SCH (21:41)
[2018-01-22] MEDS ORDERED: CALCIUM CARBONATE 500 MG CHEWABLE TAB PO PRN (00:10)
[2018-01-22] MEDS: VALBENAZINE PO SCH (04:00)
[2018-01-22] MEDS: ALBUTEROL 3 ML DEYVIAL IH SCH ×2 (05:49→11:03)
[2018-01-22 08:02] VITALS: BP 113/78; TEMP 98.5
[2018-01-22] MEDS ORDERED: PANTOPRAZOLE SODIUM 40 MG TAB PO SCH (09:00)
--- NOTE | 2018-01-22 09:19 | HOSPPROG ---
Hospitalist Progress Note Assessment/Plan: 52M with schizophrenia presented with RSV infection and hypoxia. His course was complicated by an acute change in mental status of unclear etiology. Today is my 1st encounter with the patient. Chart reviewed. Patient is feeling much better today. Reviewed his care with physical therapy and the recommendation is for him to get home care # acute resp failure d/t RSV - this is improving -room air intermittently for last several days # RSV infection with RAD exacerbation - supportive care - pred (decreased), nebs, mucinex - Advair # DM with hyperglycemia, A1c 6.8% (new dx), on steroids - will follow with reduced steroid dose - will have him follow up with Dr. Engel and consider starting metformin. 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 Will discharge the patient with close follow-up with his neurologist and with his primary care provider Dr. Engel. Also the patient will have follow-up care with home care physical therapy and occupational therapy Subjective: Patient is feeling much better today. He has ongoing weakness in his legs. Objective: Vital Signs Temp Pulse Resp BP Pulse Ox 36.9 C 70 16 113/78 90 L 01/22/18 08:00 01/22/18 08:00 01/22/18 08:00 01/22/18 08:00 01/22/18 08:00 Laboratory Results 01/19/18 04:45 01/21/18 05:00 01/21/18 01/22/18 01/23/18 05:59 05:59 05:59 Intake Total 1500 Output Total 900 Balance 600 PT 13.6 SEC (12.0-15.0) 01/16/18 11:28 INR 1.02 (0.83-1.16) 01/16/18 11:28 - Physical Exam Constitutional: appears nourished, not in pain, chronically ill appearing Eyes: PERRL Ears, Nose, Mouth, Throat: hearing normal Cardiovascular: regular rate and rhythym Respiratory: no respiratory distress, clear to auscultation Skin: warm Musculoskeletal: generalized weakness Neurologic: AAOx3 Psychiatric: interacting appropriately, not anxious, not encephalopathic ICD10 Worksheet Patient Problems: Problems Problem Status Onset Acute bronchitis Acute Chest pain Acute Exacerbation of asthma Acute
[2018-01-22] MEDS: BENZTROPINE MESYLATE 2 MG TAB PO SCH (10:52)
[2018-01-22] MEDS: ENOXAPARIN 40 MG/0.4 ML SYR SC SCH (10:52)
[2018-01-22] MEDS: guaiFENesin 600 MG TAB.ER PO SCH (10:53)
[2018-01-22] MEDS: Mirabegron [Myrbetriq] 50 MG PO SCH (10:54)
[2018-01-22] MEDS: PROPRANOLOL HCL 20 MG TAB PO SCH (10:55)
[2018-01-22] MEDS: predniSONE 20 MG TAB PO SCH (10:56)
[2018-01-22] MEDS: PANTOPRAZOLE SODIUM 40 MG TAB PO SCH (10:56)
[2018-01-22] MEDS: TAMSULOSIN HCL 0.4 MG CAP PO SCH (10:57)
[2018-01-22] MEDS: FLUTICASONE/SALMETER 250/50MCG DISKUS IH SCH (11:03)
[2018-01-22 11:06] VITALS: PULSE 71; RESP 18; O2SAT 93
--- NOTE | 2018-01-22 11:55 | PDIAF ---
- Diagnosis Diagnosis: upper respiratory illness, viral, has RSV Code Status: Full Code - Medication Management Discharge Medications: Medications to Continue on Transfer Tamsulosin HCl [Flomax 0.4 MG (*)] 0.4 mg PO DAILY 11/25/15 [Last Taken 08:00] clonazePAM [Klonopin (*)] 0.5 mg PO BID PRN 11/25/15 [Last Taken 01/08/18] Mirabegron [Myrbetriq] 50 mg PO DAILY 09/11/16 [Last Taken 01/15/18 08:00] Propranolol HCl [Inderal 20mg (*)] 20 mg PO BID 09/11/16 [Last Taken 01/15/18 08 :00] cloZAPine [Clozaril (*)] 250 mg PO HS 09/11/16 [Last Taken 01/14/18 22:00] Acetaminophen [Tylenol 325mg (*)] 325 mg PO DAILY PRN 07/27/17 [Last Taken 01/13] Cyclobenzaprine [Flexeril 10 MG (*)] 10 mg PO TID PRN 07/27/17 [Last Taken 01/08] Methocarbamol [Robaxin 750 mg (*)] 1,500 mg PO TID PRN 01/15/18 [Last Taken ] Omeprazole 40 mg PO BID 01/15/18 [Last Taken 01/15/18 08:00] QUEtiapine FUMARATE [Seroquel 25 mg (*)] 25 mg PO HS 01/15/18 [Last Taken 22:00] Valbenazine Tosylate [Ingrezza] 160 mg PO HS 01/15/18 [Last Taken 01/14/18 22:00 ] Fluticasone/Salmeter 250/50Mcg [Advair 250/50 (*)] 1 puffs IH BID #1 disk [Last Taken Unknown] guaiFENesin [Mucinex 600 MG (*)] 1,200 mg PO BID tab.er 01/22/18 [Last Taken Unknown] predniSONE 20 mg PO DAILY #5 tablet 01/22/18 [Last Taken Unknown] Discharge Medications: Refer to the Discharge Home Medication list for PRN reason. - Orders Services needed: Home Care, Physical Therapy, Occupational Therapy Home Care Face to Face: I certify that this patient was under my care and that I had the required [id number] encounter meeting the encounter requirements on the discharge day. My findings support the fact that the patient is homebound as defined in Home Care Face to Face Continued: [facility] Chapter 7 Medicare Benefits Manual 30.1.1 , The condition of the patient is such that there exists a normal inability to leave home and consequently, leaving home would require a considerable and taxing effort. Isolation Type: Droplet Isolation Diet Recommendation: ADA 2200 consistent carb Diet Texture: Regular Texture Diet - Follow Up Care Current Providers and Referrals: Nhan Engel MD [Primary Care Provider] - As per Instructions
--- NOTE | 2018-01-22 12:19 | GDS ---
[f rep st] DISCHARGE SUMMARY DISCHARGE DIAGNOSES: 1. Acute respiratory failure due to respiratory syncytial virus. 2. Respiratory syncytial virus infection with reactive airway disease exacerbation. 3. Diabetes with hyperglycemia; new diagnosis. 4. Acute encephalopathy. 5. Obstructive sleep apnea. 6. Schizophrenia. 7. Drug-induced Parkinson disease. 8. Esophageal spasm. Briefly, the patient is a 52-year-old male with a history of drug-induced Parkinson disease, obstructive sleep apnea, and schizophrenia. He presented to the emergency room with shortness of breath and ongoing cough. He wears oxygen at night. It was noted that he had RSV. He was seen and evaluated by Dr. Crenshaw because of ongoing respiratory issues and respiratory failure due to the infection. He was treated with nebulizer treatments and steroids. The patient has improved throughout his stay. He will further follow up with Dr. Engel. Also, of note, he has new-diagnosed diabetes at this time. His hemoglobin A1c is elevated at 6.8. HOSPITAL COURSE: 1. Acute respiratory failure: This is due to RSV. He is on room air. 2. RSV infection with reactive airway disease exacerbation. Will continue prednisone, but decrease his dose quickly in the setting of schizophrenia. Will continue Mucinex and Advair. 3. Newly diagnosed diabetes: A1c is 6.8. He may be able to improve this number with diet and exercise. Will have followup with Dr. Engel. 4. Acute encephalopathy: This occurred during his hospital stay. He was not getting his Ingrezza. This has resolved. 5. Obstructive sleep apnea on CPAP. 6. Schizophrenia, on Clozaril and Seroquel. 7. Drug-induced Parkinson disease. Will resume his Ingrezza. 8. Esophageal spasm: Eating and drinking well. PENDING LABORATORY AND TESTS: None. DISCHARGE CONDITION: Stable. Blood pressure is 113/78, heart rate is 76, respiratory rate is 18, O2 sat's on room air 93%, temperature 36.9 Celsius. MEDICATIONS AT DISCHARGE: Please see the EMR. DISCHARGE INSTRUCTIONS: 1. Follow up with Dr. Engel in regard to his hemoglobin A1c. 2. If he develops worsening shortness of breath, or chest pain, return to the ER. 3. Further followup with his neurologist in regard to his Parkinson disease. TIME SPENT: Greater than 30 minutes discharging and coordinating patient's care. /[id number]/MODL MTDD
--- NOTE | 2018-01-22 17:22 | ASDISCHSUM ---
Discharge Information Plan Status:Home with Home Health Medically Cleared to Leave:01/22/2018 Discharge Date:01/22/2018 01:49 PM CM D/C Disposition:Home Health Service ADT D/C Disposition:Home Health Service Projected Discharge Date:01/22/2018 11:00 AM Transportation at D/C:Friend Discharge Delay Reason: Follow-Up Date:01/22/2018 11:00 AM Discharge Slot: Final Diagnosis: Placement Information Referral Type:*Home Health Care Services Referral ID:[id number] Provider Name:[facility] (formerly [facility]) Address 1:[address] [address] Address 2: City:[place] Selection Factors: State:[place] Patient Contact Information Contact Name:HOWARD Relationship: Address: Work Phone: City: [facility] Phone: [facility] Code: Email: Financial Information Financial Class:Medicaid Primary Plan Desc:[place] Primary Plan Number:[id number] Secondary Plan Desc: Secondary Plan Number: Assessment Information [facility] CM Progress Note CM Note CM Note Notes: Patient admitted for SOB and RAD exacerbation. He has been sleeping all day and been difficult to arouse, so this information is gleaned from the PT note. Patient lives in a house with roommates, and is mostly independent. He has home O2 and a call button in case he falls. PT has recommended a home safety eval, and we will set this up with patient when he is feeling better. Date Signed: 01/16/2018 02:48 PM Electronically Signed By:Ivett Diggs RN [facility] CM Progress Note CM Note CM Note Notes: Pt feeling better today, much more alert. Met w/pt to discuss dc poc. PT recommending HC PT at this time. Pt lives in basement apartment, mostly independant although he occasionally will ask for help from housemates who live upstairs. Thos housemates will be going out of town at end of week. Pt does not use his walker on stairs; he leaves it on main level and is hoping to get one for his basement level. He does not currently drive, uses [place] and [address]. Pt says he had nurse case manager, Katie, through [facility] but that she just retired so he is waiting to find out who next counseling case manager will be. Pt has home RN, Hitesh Ba, who comes each Wednesday; he was not sure which agency Hitesh is with but says it was set up through [facility]; pt will get us Hitesh's # tomorrow. Pt has some help (maybe [employer])coming in once every 2 weeks to help with house cleaning. PT recommending HHC at this time but will see how pt progresses. Pt is open to having some home PT if needed. Once we know which agency his home RN is through (pt will give us RN's # tomorrow) then we could set him up w/PT also. CM will follow Date Signed: 01/17/2018 03:36 PM Electronically Signed By:Valeria Mejia RN [facility] CM Progress Note CM Note CM Note Notes: Pt needs his home Ingrezza ([facility] pharmacy does not have), voicemail left for pt brother Joel to see if he can help. Pt sleeping and unable to be woke when CM tried to get phone for roommate(s). Voicemail left for [facility] to see who drill setup operator is. CM to follow. CM to follow. Date Signed: 01/18/2018 04:17 PM Electronically Signed By:JOANNE Roberts [facility] Progress Note CM Note CM Note Notes: Dipika Ulloa [phone] is pt new [facility] worker, reports pt open [employer]BS provides emergency alert button, home making with [email or web address] every other week and non-emergent transportation with [employer]. Pt not currently open with a skilled home care agency. PT continues to rec home care, pt agreeable and pt address/phone verified. Today pt states he does not want his home medication Ingrezza because he believes he will heal faster without it, he states he talked to Dr. Lee about this. CM to follow. Date Signed: 01/19/2018 04:19 PM Electronically Signed By:JOANNE Roberts [facility] KELLEN Progress Note KELLEN Note CM Note Notes: KELLEN spoke w/ Dr. Lee regarding d/c POC. CM met w/ pt for dispo planning. The orginial plan was for pt to stay w/ his brother for a few days. Pt reports that is no longer an option. Pts brother will be going to [place]. Pt reports that his roommates are going to be away in [place] for 10 days. Pt reports that he will try to reach out to some friends to see if they can stay w/ him. Pt believes that it would be helpful to have HC. KELLEN spoke w/ Dipika Ulloa at [facility] to see if he is current w/ any HC agencies. Dipika reports that pt has a skilled nurse that comes every Manjeet to help w/ his medications. Dipika reports that this agency does not have PT. Referral sent to a few HC agencies. Pt does not have a preference on HC agency as long as it is covered by Medicaid. CM to follow. Plan: HC, PT Date Signed: 01/21/2018 03:10 PM Electronically Signed By:ANDRESSA Rivera Case Management Discharge Plan Note Case Management Discharge Discharge Order Complete? Answers: Yes Patient to Obtain Answers: Independently Medications Transportation Arranged Answers: Family/Friends Faxed Final Orders Answers: Yes Discharge Comments Notes: Pt is discharging home today. D/C meds and order sent via [employer] to [facility] and a call was placed to them alerting them to pt's d/c. Spoke with pt - he has alerted his CPWD RN Hitesh to his d/c and Hitesh will f/u with pt re his meds tomorrow. Pt also in contact with his BS care providers. Pt will have good support from friends and his brother and nieces. Date Signed: 01/22/2018 05:19 PM Electronically Signed By:JOANNE Kelly LACE LACJohn Length of stay for Answers: 4-6 days current admission Acuity / Level of Answers: Yes Care: Did the patient have an inpatient admission? Comorbidities - select Answers: Diabetes (uncontrolled or all that apply controlled) Other Notes: Parkinson's Disease, sleep apnea # of Emergency department Answers: 1-2 visits in the last 6 months Social determinants Answers: Mental health diagnosis (anxiety, depression, pers onality disorders, etc.) Score: 13 Date Signed: 01/22/2018 05:21 PM Electronically Signed By:JOANNE Kelly Intervention Information
== END 2018-01-22 13:49 | disposition home health service (06) | DRG 202 ==
LOC: INTOOBSV 22:04 → F3N 23:29 → OBSVTOIN 01-16 17:17 → F3E 01-19 14:55 → F3N 01-19 15:02
PROVIDERS: ADMIT Student in an Organized Health Care Education/Training Program; ATTEND Hospitalist
DX: J45.41 Moderate persistent asthma with (acute) exacerbation (principal); J96.01 Acute respiratory failure with hypoxia; G21.19 Other drug induced secondary parkinsonism; G93.49 Other encephalopathy; B97.4 Respiratory syncytial virus as the cause of diseases classified elsewhere; R53.1 Weakness; E11.65 Type 2 diabetes mellitus with hyperglycemia; F41.8 Other specified anxiety disorders; G47.33 Obstructive sleep apnea (adult) (pediatric); F20.9 Schizophrenia, unspecified; K58.9 Irritable bowel syndrome, unspecified; E86.0 Dehydration; I10 Essential (primary) hypertension; K22.4 Dyskinesia of esophagus; Z79.52 Long term (current) use of systemic steroids; Z99.81 Dependence on supplemental oxygen
CPT/HCPCS: 96374; 97116-GP; 97161-GP; 97530-GP; G0378; J1650; J2930; J7512; J7613

== ENCOUNTER 2018-05-28 13:30 | Emergency (ER) | payer MEDICAID ==
[2018-05-28] MEDS ORDERED: NS 1,000 ML IV ONE (13:40)
--- NOTE | 2018-05-28 13:55 | EDPHY ---
H & P Stated Complaint: epigastric pain Time Seen by Provider: 05/28/18 13:31 HPI/ROS: CHIEF COMPLAINT: Epigastric pain HISTORY OF PRESENT ILLNESS: Patient is a 52-year-old man with a history of COPD , anxiety, Parkinson's, bipolar and esophageal spasm who comes to the emergency department via ambulance complaining of epigastric pain. He states that it is been intermittent since this morning. It woke him from sleep. He denies any history of cardiac disease. Pain radiates to his back. He was given morphine by EMS and his pain is now gone. He thinks that he may have passed a gallstone. He states that the gallstones run in his family. No fever. No vomiting. No diaphoresis. No shortness of breath. No history of abdominal surgery. Normal bowel movement this morning. REVIEW OF SYSTEMS: Constitutional: denies: chills, fever, recent illness, recent injury EENTM: denies: blurred vision, double vision, nose congestion Respiratory: denies: cough, shortness of breath Cardiac: denies: chest pain, irregular heart rate, lightheadedness, palpitations Gastrointestinal/Abdominal: See HPI Genitourinary: denies: dysuria, frequency, hematuria, pain Musculoskeletal: denies: joint pain, muscle pain Skin: denies: lesions, rash, jaundice, bruising Neurological: denies: headache, numbness, paresthesia, tingling, dizziness, weakness Hematologic/Lymphatic: denies: blood clots, easy bleeding, easy bruising Immunologic/allergic: denies: HIV/AIDS, transplant EXAM: GENERAL: Well-appearing, well-nourished and in no acute distress. HEAD: Atraumatic, normocephalic. EYES: Pupils equal round and reactive to light, extraocular movements intact, sclera anicteric, conjunctiva are normal. ENT: TMs normal, nares patent, oropharynx clear without exudates. Moist mucous membranes. NECK: Normal range of motion, supple without lymphadenopathy or JVD. LUNGS: Breath sounds clear to auscultation bilaterally and equal. No wheezes rales or rhonchi. HEART: Regular rate and rhythm without murmurs, rubs or gallops. ABDOMEN: Soft, nontender, normoactive bowel sounds. No guarding, no rebound. No masses appreciated. BACK: No CVA tenderness, no spinal tenderness, step-offs or deformities EXTREMITIES: Normal range of motion, no pitting or edema. No clubbing or cyanosis. NEUROLOGICAL: Cranial nerves II through XII grossly intact. Normal speech, normal gait. 5/5 strength, normal movement in all extremities, normal sensation PSYCH: Normal mood, normal affect. SKIN: Warm, dry, normal turgor, no visible rashes or lesions. Source: Patient Exam Limitations: No limitations - Personal History Current Tetanus Diphtheria and Acellular Pertussis (TDAP): Yes - Medical/Surgical History Hx Asthma: Yes Hx Chronic Respiratory Disease: Yes Hx Diabetes: No Hx Cardiac Disease: No Hx Renal Disease: No Hx Cirrhosis: No Hx Alcoholism: No Hx HIV/AIDS: No Hx Splenectomy or Spleen Trauma: No Other PMH: PMH: HTN, sleep apnea, anxiety, benign tumors, tremor, esoph ulcer, depression, psoriosis, Parkinson's, Tardive Dyskinesia, hallucinations, OCD, diverticulitis, GASTRO PARESIS, COPD - Family History Significant Family History: No pertinent family hx - Social History Smoking Status: Never smoked Alcohol Use: Sober Drug Use: None Constitutional: Initial Vital Signs Temperature (C) 37.0 C 05/28/18 13:40 Heart Rate 69 05/28/18 13:40 Respiratory Rate 20 05/28/18 13:40 Blood Pressure 169/82 H 05/28/18 13:40 O2 Sat (%) 93 05/28/18 13:40 O2 Delivery Mode Room Air O2 (L/minute) 2 Allergies/Adverse Reactions: divalproex sodium Allergy (Unknown, Verified 05/28/18 13:40) Dyspnea,nausea,spasms NSAIDS (Non-Steroidal Anti-Inflamma [NSAIDS (Non-Steroidal Anti-Inflammatory Drug)] Allergy (Unknown, Verified 05/28/18 13:40) may cause bleeding chlorpromazine HCl [From Thorazine] Allergy (Verified 05/28/18 13:40) duloxetine HCl [From Cymbalta] Allergy (Verified 05/28/18 13:40) hydrocodone bitartrate [From Vicodin] Allergy (Verified 05/28/18 13:40) meperidine HCl [From Demerol] Allergy (Verified 05/28/18 13:40) zolpidem tartrate [From Ambien] Allergy (Verified 05/28/18 13:40) chlorpromazine HCl Allergy (Unknown, Uncoded 01/15/18 20:02) duloxetine HCl Allergy (Unknown, Uncoded 01/15/18 20:02) hydrocodone bitartrate Allergy (Unknown, Uncoded 01/15/18 20:02) meperidine HCl Allergy (Unknown, Uncoded 01/15/18 20:02) zolpidem tartrate Allergy (Unknown, Uncoded 01/15/18 20:02) Home Medications: Medication Instructions Recorded Tamsulosin HCl [Flomax 0.4 MG (*)] 0.4 mg PO DAILY 11/25/15 clonazePAM [Klonopin (*)] 0.5 mg PO BID PRN 11/25/15 Mirabegron [Myrbetriq] 50 mg PO DAILY 09/11/16 Propranolol HCl [Inderal 20mg (*)] 20 mg PO BID 09/11/16 cloZAPine [Clozaril (*)] 250 mg PO HS 09/11/16 Acetaminophen [Tylenol 325mg (*)] 325 mg PO DAILY PRN 07/27/17 Cyclobenzaprine [Flexeril 10 MG 10 mg PO TID PRN 07/27/17 (*)] Methocarbamol [Robaxin 750 mg (*)] 1,500 mg PO TID PRN 01/15/18 Omeprazole 40 mg PO BID 01/15/18 QUEtiapine FUMARATE [Seroquel 25 25 mg PO HS 01/15/18 mg (*)] Valbenazine Tosylate [Ingrezza] 160 mg PO HS 01/15/18 Fluticasone/Salmeter 250/50Mcg 1 puffs IH BID #1 disk 01/22/18 [Advair 250/50 (*)] guaiFENesin [Mucinex 600 MG (*)] 1,200 mg PO BID tab.er 01/22/18 predniSONE 20 mg PO DAILY #5 tablet 01/22/18 Diazepam [Valium 5 MG (*)] 5 mg PO TID PRN #7 tab 05/28/18 Ondansetron Odt [Zofran Odt 4 mg 4 mg PO Q4 PRN #20 tab 05/28/18 (RX)] Medical Decision Making - Diagnostics Imaging Results: Imaging Impressions Abdomen/Pelvis CTA 05/28/18 13:42 Impression: 1. Normal caliber minimally atherosclerotic aorta. No dissection or aneurysm. 2. No acute pulmonary thromboembolic disease. 3. Cholelithiasis. Equivocal stranding around the gallbladder. 4. Normal bowel pattern and appendix. 5. No fracture or bone lesion. Findings discussed with Emergency Department physician, Corbin Quezada M.D., on May 28, 2018 1620. E:amm Chest/Thorax CTA 05/28/18 13:42 Impression: 1. Normal caliber minimally atherosclerotic aorta. No dissection or aneurysm. 2. No acute pulmonary thromboembolic disease. 3. Cholelithiasis. Equivocal stranding around the gallbladder. 4. Normal bowel pattern and appendix. 5. No fracture or bone lesion. Findings discussed with Emergency Department physician, Corbin Quezada M.D., on May 28, 2018 1620. E:amm Imaging: Discussed imaging studies w/ manager call center Radiologist ED Course/Re-evaluation: 4:25 p.m. the patient is feeling completely better. He states that since he arrived his pain resolved. He thinks that he passed a gallstone. His CT and lab work is all reassuring. He would like to go home. He is also requesting a new prescription for his esophageal spasm. The medication he has been taking has been working recently. We will try small prescription for Valium and I will have him follow up with his primary Dr. Engel. Differential Diagnosis: Partial list of the Differential diagnosis considered include but were not limited to; biliary disease, aneurysm, dissection and although unlikely based on the history and physical exam, I also considered pancreatitis, PE, acute coronary disease. I discussed these differential diagnoses and the plan with the patient as well as the usual and expected course. The patient understands that the diagnosis is provisional and that in medicine we are not always correct and that further workup is often warranted. Usual and customary warnings were given. All of the patient's questions were answered. The patient was instructed to return to the emergency department should the symptoms at all worsen or return, otherwise to followup with the physician as we discussed. - Data Points Laboratory Results: Laboratory Results 05/28/18 12:50 05/28/18 12:50 05/28/18 05/28/18 05/28/18 15:15 12:50 12:50 WBC RBC Hgb Hct MCV MCH MCHC RDW Plt Count MPV Neut % (Auto) Lymph % (Auto) [place] % (Auto) Eos % (Auto) Baso % (Auto) Nucleat RBC Rel Count Absolute Neuts (auto) Absolute Lymphs (auto) Absolute Monos (auto) Absolute Eos (auto) Absolute Basos (auto) Absolute Nucleated RBC Immature Gran % Immature Gran # PT 12.3 SEC SEC (12.0-15.0) INR 0.89 (0.83-1.16) APTT 27.7 SEC SEC (23.0-38.0) Sodium 137 mEq/L mEq/L (135-145) Potassium 4.7 mEq/L mEq/L (3.3-5.0) Chloride 104 mEq/L mEq/L (97-110) Carbon Dioxide 23 mEq/l mEq/l (22-31) Anion Gap 10 mEq/L mEq/L (8-16) BUN 17 mg/dL mg/dL (7-23) Creatinine 1.1 mg/dL mg/dL (0.7-1.3) Estimated GFR > 60 Glucose 178 mg/dL H mg/dL (70-100) Calcium 9.6 mg/dL mg/dL (8.5-10.4) Total Bilirubin 0.5 mg/dL mg/dL (0.1-1.4) Conjugated Bilirubin 0.3 mg/dL mg/dL (0.0-0.5) Unconjugated Bilirubin 0.2 mg/dL mg/dL (0.0-1.1) AST 43 IU/L IU/L (17-59) ALT 64 IU/L IU/L (21-72) Alkaline Phosphatase 57 IU/L IU/L (38-126) Total Protein 7.1 g/dL g/dL (6.3-8.2) Albumin 4.1 g/dL g/dL (3.5-5.0) Lipase 90 IU/L IU/L (23-300) Urine Color YELLOW Urine Appearance CLEAR Urine pH 6.0 (5.0-7.5) Ur Specific [place] 1.011 (1.002-1.030) Urine Protein NEGATIVE (NEGATIVE) Urine Ketones NEGATIVE (NEGATIVE) Urine Blood NEGATIVE (NEGATIVE) Urine Nitrate NEGATIVE (NEGATIVE) Urine Bilirubin NEGATIVE (NEGATIVE) Urine Urobilinogen NEGATIVE EU EU (0.2-1.0) Ur Leukocyte Esterase NEGATIVE (NEGATIVE) Urine RBC 1-3 /hpf /hpf (0-3) Urine WBC 1-3 /hpf /hpf (0-3) Ur Epithelial Cells NONE SEEN /lpf /lpf (NONE-1+) Urine Mucus TRACE /lpf /lpf (NONE-1+) Urine Glucose NEGATIVE (NEGATIVE) 05/28/18 12:50 WBC 8.20 10^3/uL 10^3/uL (3.80-9.50) RBC 5.02 10^6/uL 10^6/uL (4.40-6.38) Hgb 14.2 g/dL g/dL (13.7-17.5) Hct 41.4 % % (40.0-51.0) MCV 82.5 fL fL (81.5-99.8) MCH 28.3 pg pg (27.9-34.1) MCHC 34.3 g/dL g/dL (32.4-36.7) RDW 13.1 % % (11.5-15.2) Plt Count 347 10^3/uL 10^3/uL (150-400) MPV 10.2 fL fL (8.7-11.7) Neut % (Auto) 65.7 % % (39.3-74.2) Lymph % (Auto) 26.2 % % (15.0-45.0) [place] % (Auto) 5.2 % % (4.5-13.0) Eos % (Auto) 2.1 % % (0.6-7.6) Baso % (Auto) 0.4 % % (0.3-1.7) Nucleat RBC Rel Count 0.0 % % (0.0-0.2) Absolute Neuts (auto) 5.39 10^3/uL 10^3/uL (1.70-6.50) Absolute Lymphs (auto) 2.15 10^3/uL 10^3/uL (1.00-3.00) Absolute Monos (auto) 0.43 10^3/uL 10^3/uL (0.30-0.80) Absolute Eos (auto) 0.17 10^3/uL 10^3/uL (0.03-0.40) Absolute Basos (auto) 0.03 10^3/uL 10^3/uL (0.02-0.10) Absolute Nucleated RBC 0.00 10^3/uL 10^3/uL (0-0.01) Immature Gran % 0.4 % % (0.0-1.1) Immature Gran # 0.03 10^3/uL 10^3/uL (0.00-0.10) PT INR APTT Sodium Potassium Chloride Carbon Dioxide Anion Gap BUN Creatinine Estimated GFR Glucose Calcium Total Bilirubin Conjugated Bilirubin Unconjugated Bilirubin AST ALT Alkaline Phosphatase Total Protein Albumin Lipase Urine Color Urine Appearance Urine pH Ur Specific [place] Urine Protein Urine Ketones Urine Blood Urine Nitrate Urine Bilirubin Urine Urobilinogen Ur Leukocyte Esterase Urine RBC Urine WBC Ur Epithelial Cells Urine Mucus Urine Glucose Medications Given: Discontinued Medications Sodium Chloride (Ns) 1,000 mls @ 0 mls/hr IV EDNOW ONE; Wide Open PRN Reason: Protocol Stop: 05/28/18 13:41 Last Admin: 05/28/18 13:48 Dose: 1,000 mls Departure - Departure Disposition: Home, Routine, Self-Care Clinical Impression: Epigastric abdominal pain Condition: Fair Instructions: Diazepam (By mouth), Ondansetron (By mouth), Epigastric Pain (ED) Referrals: Patient,NotPresent [Unknown] - As per Instructions Nhan Engel MD [Primary Care Provider] - 2-3 days, if not improved Prescriptions: Diazepam [Valium 5 MG (*)] 5 mg PO TID PRN #7 tab PRN Reason: Spasms Ondansetron Odt [Zofran Odt 4 mg (RX)] 4 mg PO Q4 PRN #20 tab PRN Reason: Nausea & Vomiting
[2018-05-28 13:58] LABS: PLATELET COUNT 347 10^3/uL (150-400)
[2018-05-28 14:16] LABS: INR 0.89 (0.83-1.16); PROTIME(PATIENT) 12.3 SEC (12.0-15.0)
[2018-05-28] MEDS ORDERED: IOPAMIDOL (ISOVUE 370) 100 ML BTL IV ONE ×2 (14:27→15:35)
[2018-05-28 16:28] VITALS: BP 147/70
== END 2018-05-28 16:39 | disposition home or self-care (01) ==
LOC: EDUNIT#
DX: R10.13 Epigastric pain (principal); E86.9 Volume depletion, unspecified; I10 Essential (primary) hypertension; J44.9 Chronic obstructive pulmonary disease, unspecified; G20 Parkinson's disease
CPT/HCPCS: Q9967

== ENCOUNTER 2018-06-25 | Inpatient (IN) | payer MEDICAID | END 2018-06-26 15:45 | disposition home or self-care (01) | DRG 201 | PROVIDERS: ADMIT Internal Medicine ==

== ENCOUNTER 2018-10-29 15:15 | Emergency (ER) | payer MEDICAID ==
--- NOTE | 2018-10-29 15:35 | EDPHY ---
H & P Stated Complaint: edema in lower legs, difficulty urinating, sob off and on Time Seen by Provider: 10/29/18 15:34 - Personal History Current Tetanus/Diphtheria Vaccine: Yes - Medical/Surgical History Hx Asthma: No Hx Chronic Respiratory Disease: Yes Hx Diabetes: No Hx Cardiac Disease: Yes Hx Renal Disease: No Hx Cirrhosis: No Hx Alcoholism: No Hx HIV/AIDS: No Hx Splenectomy or Spleen Trauma: No Other PMH: PMH: HTN, sleep apnea, anxiety, benign tumors, tremor, esoph ulcer, depression, psoriosis, Parkinson's, Tardive Dyskinesia, hallucinations, OCD, diverticulitis, GASTRO PARESIS, esophageal spasms, unconfirmed lisseth body dementia, bipolar, confusion, ptsd, gerd, tracheal diverticulitis, esophogeal diverticulitis, dysphagia, chf, restrictive lung disease, gallstone - Social History Smoking Status: Never smoked Constitutional: Initial Vital Signs Temperature (C) 37.8 C 10/29/18 15:29 Heart Rate 77 10/29/18 15:29 Respiratory Rate 18 10/29/18 15:29 Blood Pressure 143/87 H 10/29/18 15:29 O2 Sat (%) 95 10/29/18 15:29 O2 Delivery Mode Room Air Allergies/Adverse Reactions: divalproex sodium Allergy (Unknown, Verified 10/29/18 15:25) Dyspnea,nausea,spasms NSAIDS (Non-Steroidal Anti-Inflamma [NSAIDS (Non-Steroidal Anti-Inflammatory Drug)] Allergy (Unknown, Verified 10/29/18 15:25) may cause bleeding chlorpromazine [From Thorazine] Allergy (Verified 10/29/18 15:25) chlorpromazine HCl [From Thorazine] Allergy (Verified 10/29/18 15:25) clindamycin Allergy (Verified 10/29/18 15:25) duloxetine HCl [From Cymbalta] Allergy (Verified 10/29/18 15:25) hydrocodone bitartrate [From Vicodin] Allergy (Verified 10/29/18 15:25) meperidine HCl [From Demerol] Allergy (Verified 10/29/18 15:25) zolpidem [From Ambien] Allergy (Verified 10/29/18 15:25) zolpidem tartrate [From Ambien] Allergy (Verified 10/29/18 15:25) chlorpromazine HCl Allergy (Unknown, Uncoded 10/29/18 15:25) duloxetine HCl Allergy (Unknown, Uncoded 10/29/18 15:25) hydrocodone bitartrate Allergy (Unknown, Uncoded 10/29/18 15:25) meperidine HCl Allergy (Unknown, Uncoded 01/15/18 20:02) zolpidem tartrate Allergy (Unknown, Uncoded 01/15/18 20:02) Home Medications: Medication Instructions Recorded Acetaminophen [Tylenol 325mg (*)] 325 mg PO Q6 06/24/18 Diazepam [Valium 10 MG (*)] 10 mg PO HS PRN 06/24/18 Doxycycline Hyclate [Vibramycin 100 mg PO BID 06/24/18 100 MG (*)] Gabapentin [Neurontin 300 MG (*)] 300 mg PO BID 06/24/18 Herbals/Supplements -Info Only 1 ea PO DAILY 06/24/18 Methocarbamol [Robaxin 750 mg (*)] 1,500 mg PO TID PRN 06/24/18 Omeprazole 40 mg PO BID 06/24/18 Ondansetron Odt [Zofran Odt 4 mg 4 mg PO Q4 PRN 06/24/18 (*)] QUEtiapine FUMARATE [Seroquel 50 50 mg PO HS PRN 06/24/18 mg (*)] Tamsulosin HCl [Flomax 0.4 MG (*)] 0.4 mg PO DAILY 06/24/18 Vitamin B Complex [Vitamin B 1 each PO DAILY 06/24/18 Complex (OTC)] Metoprolol Tartrate [Lopressor 25 25 mg PO BID #60 tab 06/26/18 mg (*)] Abilify 10/29/18 Clonazepam 10/29/18 Diltiazem 10/29/18 Medical Decision Making ED Course/Re-evaluation: CHIEF COMPLAINT: Edema, shortness of breath HISTORY OF PRESENT ILLNESS: This patient is a 52 year old male with complex medical history including hypertension, congestive heart failure, and several cognitive diagnoses. He presents today complaining of lower extremity edema and reduced urine output. He states "I'm okay, just kind of on a roller-coaster". He complains of painful edema in his lower extremities with associated numbness and paresthesias. He also noted some yellowish discoloration over his left ankle. This has progressed over two weeks. He endorses reduced urine output and a six pound weight gain over the last week. He also endorses some reduced stamina and shortness of breath compared to usual. He is currently feeling a little better than he was when symptoms were most severe on Wednesday, three days ago, but states he presents today at the request of his home nurse. No fever, chest pain , headache, lightheadedness, vomiting, diarrhea, hematuria, or other associated symptoms. REVIEW OF SYSTEMS: A comprehensive 10 system review of systems is otherwise negative aside from elements mentioned in the history of present illness and medical decision making. PHYSICAL EXAM: HR, BP, O2 Sat, RR. Temp noted General Appearance: Alert, well hydrated, appropriate, and non-toxic appearing. Head: Atraumatic without scalp tenderness or obvious injury Eyes: Pupils equal, round, reactive to light and accommodation, EOMI, no trauma , no injection. Ears: Clear bilaterally, no perforation, normal landmarks Nose: Atraumatic, no rhinorrhea, clear. Throat: There is no erythema or exudates, no lesions, normal tonsils, mucus membranes moist. Neck: Supple, 2+ carotid upstroke, nontender, no lymphadenopathy. Respiratory: No retractions, no distress, no wheezes, and no accessory muscle use. Lungs are clear to auscultation bilaterally. Cardiovascular: Regular rate and rhythm, no murmurs, rubs, or gallops. Bilateral carotid, radial, dorsalis pedis, and posterior tibial pulses intact. Good capillary refill all extremities. Gastrointestinal: Abdomen is soft, nontender, non-distended, no masses, no rebound, no guarding, no peritoneal signs. Musculoskeletal: Normal active ROM of all extremities, atraumatic. Neurological: Alert, appropriate, and interactive. The patient has normal DTRs and non-focal cranial nerves, motor, sensory, and cerebellar exam. Skin: No rashes, good turgor, no nodules on palpation. Past medical history: Hypertension. Congestive heart failure. History of Parkinson's, Tardive Dyskinesia, hallucinations, OCD, depression. Past surgical history: Noncontributory. Family history: Noncontributory. Social history: Single. Lives in [place]. Disabled. DIFFERENTIAL DIAGNOSIS: The differential diagnosis for the patient's leg swelling included but was not limited to hypoalbuminemia, congestive heart failure, cor pulmonale, venous stasis, trauma, and DVT. The differential diagnosis for the patient's urinary retention included but was not limited to medication side effect, neurologic causes, outflow obstruction including prostatic hypertrophy, and infection. MEDICAL DECISION MAKIN52 year old male with complex medical history including hypertension, congestive heart failure, and several cognitive diagnoses presents with complaints of lower extremity edema and urinary retention. At this time, his edema has largely resolved and he states he is feeling better. Plan for labs including UA. 16:10 Patient was able to urinate here in the emergency department. No post- void residual urine on blader scan. UA is completely unremarkable. Reassessed patient. I assured him there is no evidence of urgent or emergent processes at this time and encouraged him to follow up with his primary care provider for further symptom and medication regimen management. - Data Points Laboratory Results: 10/29/18 16:05 Urine Color COLORLESS Urine Appearance CLEAR Urine pH 7.0 (5.0-7.5) Ur Specific [place] 1.002 (1.002-1.030) Urine Protein NEGATIVE (NEGATIVE) Urine Ketones NEGATIVE (NEGATIVE) Urine Blood NEGATIVE (NEGATIVE) Urine Nitrate NEGATIVE (NEGATIVE) Urine Bilirubin NEGATIVE (NEGATIVE) Urine Urobilinogen NEGATIVE EU EU (0.2-1.0) Ur Leukocyte Esterase NEGATIVE (NEGATIVE) Urine RBC 1-3 /hpf /hpf (0-3) Urine WBC 1-3 /hpf /hpf (0-3) Ur Epithelial Cells NONE SEEN /lpf /lpf (NONE-1+) Urine Glucose NEGATIVE (NEGATIVE) Departure - Departure Disposition: Home, Routine, Self-Care Clinical Impression: History of edema, Urinary hesitancy Condition: Good Instructions: Urinary Retention in Men (ED), Leg Edema (ED) Additional Instructions: Follow up with your primary care provider for further management of symptoms and discussion of your medication regimen. There was no emergent or urgent problem noted in our testing today. Return to the emergency department for fever, chest pain, shortness of breath, or other associated symptoms. Referrals: Nhan Engel MD [Primary Care Provider] - As per Instructions Report Scribed for: William Jean Baptiste Report Scribed by: Ricarda Aguirre Date of Report: 10/29/18 Time of Report: 16:41
[2018-10-29 16:45] VITALS: BP 138/87
== END 2018-10-29 17:13 | disposition home or self-care (01) ==
DX: R60.0 Localized edema (principal); R39.11 Hesitancy of micturition; I10 Essential (primary) hypertension; I50.9 Heart failure, unspecified; G20 Parkinson's disease; G24.01 Drug induced subacute dyskinesia

== ENCOUNTER → 2018-11-11 | Outpatient (CLI) | payer MEDICAID | LOC: FIMAGING 09:31 | PROVIDERS: ATTEND Internal Medicine Critical Care Medicine | DX: J40 Bronchitis, not specified as acute or chronic (principal) ==

== ENCOUNTER 2019-03-10 20:35 | Inpatient (IN) | payer MEDICAID ==
[2019-03-10] MEDS ORDERED: GABAPENTIN 300 MG CAP PO SCH (21:00)
[2019-03-10] MEDS ORDERED: LORazepam 1 MG TAB PO PRN ×2 (21:30→21:33)
[2019-03-10] MEDS ORDERED: ACETAMINOPHEN 325 MG TAB PO PRN (21:31)
[2019-03-10] MEDS ORDERED: MAG HYDROX/AL HYDROX/SIMETH 30 ML UDCUP PO PRN (21:31)
[2019-03-10] MEDS ORDERED: MAGNESIUM HYDROXIDE 30 ML UDCUP PO PRN (21:32)
[2019-03-10] MEDS: traZODone 100 MG TAB PO SCH (21:32)
[2019-03-10] MEDS: MAGNESIUM OXIDE 400 MG TAB PO SCH (21:33)
[2019-03-10] MEDS: PROPRANOLOL HCL 40 MG TAB PO SCH (21:33)
[2019-03-10] MEDS ORDERED: OLANZapine DISINTEGR 5 MG TAB PO PRN (21:34)
[2019-03-10] MEDS: tiZANidine HCL 2 MG TAB PO PRN (22:01)
[2019-03-10] MEDS ORDERED: LORazepam 0.5 MG TAB PO PRN (22:30)
[2019-03-11 08:53] LABS: PLATELET COUNT 184 10^3/uL (150-400)
[2019-03-11] MEDS ORDERED: GABAPENTIN 300 MG CAP PO SCH ×3 (09:00→17:26)
[2019-03-11] MEDS: PROPRANOLOL HCL 40 MG TAB PO SCH ×2 (09:12→20:54)
[2019-03-11] MEDS: tiZANidine HCL 2 MG TAB PO PRN (09:43)
--- NOTE | 2019-03-11 11:30 | ASMTBHMTP ---
Master Treatment Plan Master Treatment Plan Answers: Depressed Mood with for: Suicidal Ideation Date: 03/11/2019 Diagnosis on Admission: Major Depressive Disorder Expected length of stay: 3-5 Days Reason for admission: Notes: Per [facility] Evaluation - Ct. is a 53 YO male with CCHA. Ct. is unemployed and lives with roommates in [place]. Ct. is open to [facility] and work with Dr. Guillaume and therapist Daria Matta. Ct. was referred to [facility] for a crisis assessment by his outpatient therapist Daria Matta after reporting "feeling 'not safe' with himself - visual command hallucinations, severe physical pain and significant emotional pain. Client reports he valentin thoughts of multiple ways of killing himself including jumping off a cruise ship, chemical suffocation, and strangulation. The only thing the client reports keeping him safe is "decency for not allowing someone to find me like that. I don't know how long that decency will last though". Patient's stated presenting problems: Notes: Pt. stated he "went to my therapist asking for help communicating better with my psychiatrist". Pt. reports having "communication issues" with his current psychiatrist and reports his therapist will be leaving in about a month. Patient's goals for treatment: Notes: Pt. reports wanting to speak with a therapist, utilize his coping skills and possible start new medications. Patient's strengths: Notes: Pt. 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 Identify supports outside of hospital: Notes: Pt. reports feeling supported by his friends, brother, nieces and nephews. Discharge criteria: Notes: Suicidal ideation will resolve and patient will have a plan to safely manage recurrent suicidal ideation. Initial disposition plan/considerations: Notes: Pt. reports planning to return home "to work on pain and centered as best as possible". Master Treatment Plan Required Signatures Psychiatrist signature: Answers: Ramon White MD: RN on-shift signature: Answers: RN: Patient signature: Answers: Patient: Date Signed: 03/11/2019 11:29 AM Electronically Signed By:Paula Dillon
[2019-03-11] MEDS: DICLOFENAC SODIUM 1% 100 GM GEL TP PRN ×2 (11:34→20:55)
[2019-03-11] MEDS: (Mirabegron [Myrbetriq] 50 MG) PO SCH (11:36)
--- NOTE | 2019-03-11 12:30 | GCON ---
[f rep st] CONSULTATION DATE OF CONSULTATION: 03/11/2019 REFERRING PHYSICIAN: Yuniel Gomez MD REASON FOR CONSULTATION: Medical evaluation. HISTORY OF PRESENT ILLNESS: A 53-year-old male with bipolar/schizoaffective disorder, systolic heart failure, palpitations, presented to [facility] with insomnia and auditory hallucinations. He states he is hearing a radio playing sports and it is too loud. He has had some passive thoughts that he wished he would not have to live this way, but denies an active plan of suicide. He was placed on an M1 hold with planned for inpatient admission to [facility]. Denies chest pain, palpitations, shortness of breath. Complains of chronic lumbar/thoracic spine, for which he uses Voltaren gel. Denies lower extremity edema. REVIEW OF SYSTEMS: I completed a 10-point review of systems, negative except in HPI. PAST MEDICAL HISTORY: 1. Bipolar disorder. 2. Schizoaffective. 3. CHF .. 4. Chronic pain disorder. 5. Dementia. 6. Depression. 7. Diverticulitis. 8. Dysphagia. 9. Esophageal spasm. 10. Gastroparesis. 11. Multiple gastric ulcers. 12. Neuropathy. 13. OCD. 14. Parkinson's. 15. Paroxysmal SVT. 16. PTSD. 17. Sleep apnea. 18. Tardive dyskinesia. PAST SURGICAL HISTORY: Kidney surgery, nose surgery, tonsillectomy, Zenker diverticulum repair in 07/2017. FAMILY HISTORY: Diabetes, hypertension, Parkinson's. Sister with emphysema SOCIAL HISTORY: Denies alcohol, tobacco, or drugs. ALLERGIES: See [employer]. HOME MEDICATIONS: Klonopin, clozapine 250 at bedtime, Ingrezza 80 mg at bedtime , tizanidine 8 mg three times daily p.r.n., tamsulosin, propranolol 20 mg twice daily, omeprazole, omega-3 fatty acids, mirabegron 50 mg daily Robaxin, iron sulfate, PHYSICAL EXAMINATION: VITAL SIGNS: Temperature 36.5, blood pressure 116/73, heart rate in the 60s, respirations 14, 96% on room air. GENERAL: Obese, no acute distress. HEENT: PERRLA. Moist mucous membranes. CV: Regular rate and rhythm. No lower extremity edema. LUNGS: Diminished but clear. No crackles or wheezing. ABDOMEN: Soft, nontender. : No [place]. MUSCULOSKELETAL: Moving all 4 extremities. NEURO: 2 through 12 intact. PSYCH: He is agitated, is holding his ears stating he is hearing a sports station too loud. LABORATORY DATA: WBC 4, hemoglobin 12, hematocrit 36, platelets 184. Sodium 138, potassium 3.7, chloride 100, carbon dioxide 29, BUN 27, creatinine is 1.4 baseline is 1.1, glucose is 141, triglycerides 204, cholesterol 188. ASSESSMENT AND PLAN: 1. Suicidal ideations/hallucinations: Will defer to psychiatry team. 2. MEHUL: Creatinine mildly elevated 1.4 (baseline is 1.1). Encourage p.o., ovoid nephrotoxic agents. 3. Tardive dyskinesia: Ingrezza. Will need to monitor kidney functions, as may need dose reduction. 4. Palpitations: Propranolol. 5. Back pain: Voltaren gel, Zanaflex. 6. Benign prostatic hyperplasia: Flomax. 7. History of Zenker diverticulum, status post repair. Proton pump inhibitor. 8. History of paroxysmal SVT: prior Holter monitor and negative Lexiscan stress. No palpitations. 9. Gastric ulcers: PPI Please call if any questions. /[id number]/MODL MTDD
--- NOTE | 2019-03-11 13:05 | PDMN ---
Medical Necessity Medical necessity: Pt meets IP criteria per RN GERIATRIC & MCG [id number]; est los >2 mn for eval/tx of major depressive disorder w/suicidal ideations & hallucinations; pt on M1 hold due to risk of harm to self; admit for safety, crisis stabilaztion & med eval; per consult & order 03/11/19
--- NOTE | 2019-03-11 16:58 | ASMTCMCOM ---
CM Note CM Note Notes: CC met with pt. to complete MTP. Pt. stated the unit is a "pretty senior care" and his experience has been a "complete cluster fuck". Pt. reports he was "assured I would be allowed to have my iphone", adding he was told he would have access to his back pain tools (foam rollers, wedges, etc). Pt. reports his CPAP at home is broken and that is the main reason he is in the hospital, stating "if my CPAP hadn't broken, I would be in here at all". Pt. reports his current therapist is leaving in a month, which he is very upset about. Pt. reports his psychiatrist Dr. Guillaume, is "not listening to me. Focused on pills to help me sleep". Pt. stated he would be interested in seeing a new psychiatrist or have [facility] staff speak to his current psychiatrist and "help with communication issues". Pt. reports "radio in my ears....voices". Pt. stated his depression "got really bad 3 months ago" adding he "didn't get out of the house". Pt. reports having "cotton mouth". Pt. reports not drinking alcohol due to his medications, adding he has maybe 10, 1/3 of a glass of wine, in the last 5 years. Pt. reports "feel like falling into a trap". Pt. presents in bed, eyes closed, tangential, frustrated and mostly cooperative. Staff report pt. sleeping 8.5 hours and being medication compliant. [facility] called today stating pt. has appointments on 03/16 @10am with his therapist, and 03/20 at 1:00pm with Dr. Guillaume. Date Signed: 03/11/2019 04:57 PM Electronically Signed By:Paula Dillon
[2019-03-11] MEDS ORDERED: CETIRIZINE 10 MG TAB PO PRN (17:24)
--- NOTE | 2019-03-11 20:31 | BAPA ---
[f rep st] ADMISSION PSYCHIATRIC ASSESSMENT DATE OF SERVICE: 03/11/2019 CHIEF COMPLAINT: "Not feeling safe." HISTORY OF PRESENT ILLNESS: The patient is a 53-year-old man, unemployed, lives with roommates in [place], open client of [facility]. He was referred to the walk-in clinic for crisis assessment by his outpatient therapist, Danilo, after reporting that he could "not feel safe" with himself. He endorsed auditory command hallucinations, severe physical pain and significant emotional pain. Client said that he thought of multiple ways of killing himself including jumping off a cruise ship, chemical suffocation and strangulation. The only thing keeping the client safe is "decency for not allowing someone to find me like that. I don't know how long that decency will last." The patient states that "most people in my family think there is a significant amount of hypochondria." The patient was extremely frustrated with the staff at the walk-in clinic. He said he thought he was coming to the walk-in clinic to get medication to help with the "radio buzzing" in his ear. He states that he was extremely upset about being placed on an involuntary M1 hold. He says that he feels like he is "getting locked up. " He was sent to the [facility] ED for medical clearance. When patient arrived on the Behavioral Health inpatient unit, he was also extremely angry, demanding, frustrated and unsatisfied. He said that he has not been able to sleep at night, which is making his auditory hallucinations worse because his CPAP machine is broken and he has not been willing or able to get it fixed. He said that he thought that he was coming to the hospital in order to get better sleep and said that "I need my CPAP machine." He said he was told at [facility] that he would have access to his cellphone , that there be no restrictions on his phone calls, and that he would have a lot more privileges than what was outlined in the patient's handbook. The patient is extremely upset due to the safety restrictions, monitoring and the guidelines for the inpatient psychiatric unit. He told staff here that he feels like he is in fci and that he has been "locked up" for no good reason. When this MD met with the patient, he was calmer, more cooperative, somewhat pleasant, although extremely critical. He had some harsh criticism and unkind things to say about why he was sent to the hospital and about the treatment that he has received at [facility] and at the walk-in clinic. MD spent a great deal of time going over all of the patient's medications. Many of the patient's medications that are listed on his medication reconciliation he states that he has not been taking. He says that he has discussed the changes to his medications with his outpatient psychiatrist, who has agreed to change his medications. Some new medications have been added by his PCP that are not reflected on the medication reconciliation sheet. The patient states that he was grateful for the MD taking the time to review his medications with him and for ordering the appropriate medications for him to have while he is on the inpatient unit. He did deny that he was in any imminent danger. He denied currently feeling, sad, helpless, hopeless, worthless, anxious or depressed. He said that he has those feelings "all the time" but he says that they also "come and go." There are times when he is feeling better and times that he is feeling worse. He says that his family describes it as "peaks and valleys" and says that there are times when he feels like he is crashing when he gets very despondent and then other times when he says that he is more optimistic and future oriented. He says that today is a better day than the day that he was seen in the walk-in clinic. PAST PSYCHIATRIC HISTORY: The patient told the evaluator transfer students at the walk-in clinic , "I just don't fucking know what is real half the time. I am so empty in my core. I don't feel I have a purpose. I can't describe how exhausted I am. It is just my anger that is keeping me standing up. I feel like I am already and I could go to sleep and curl up and that is okay with me. Turn the lights out. I am done. I go from anger, yelling and screaming to sobbing." The patient is an open client with [facility]. He sees psychiatrist Dr. Guillaume, who is his outpatient psychiatrist and his therapist's name is Danilo Keane The patient states that he is not on any antipsychotic or mood stabilizer medications at the current time. He says that he had been on Clozaril 250 mg p.o. q.h.s., but he said he talked to his outpatient psychiatrist, and Dr. Guillaume discontinued this medication. This MD is not sure whether or not the patient is a reliable historian. We are attempting to obtain collateral information from [facility] to more accurately reflect the patient' s current treatment regimen. Per [facility] records, the only medications patient is currently getting from Dr. Guillaume are trazodone 100 mg p.o. q.h.s. for insomnia, gabapentin 600 mg p.o. q.a.m. and 900 mg p.o. q.h.s. for anxiety. He has also taken clonazepam in the past. It is unclear how consistently the patient is taking those medications. ALLERGIES: The patient has numerous medication allergies. He states that he is allergic to Thorazine, Demerol, Vicodin, Ambien, Cymbalta, NSAIDs, Depakote, clindamycin, Ambien, duloxetine, hydrocodone, and meperidine. There are no listed reactions to any of these medications. It is unclear what the adverse effects of those medications are. CURRENT MEDICATIONS: After spending a great deal of time reviewing the patient' s medications with him, the most up to date list of medications includes: Gabapentin 600 mg p.o. q.a.m., 900 mg p.o. q.h.s.; trazodone 100 mg p.o. q.h.s. ; triamterene/hydrochlorothiazide 37.5/25 daily; propranolol 40 mg PO BID; Myrbetriq ER 50 mg p.o. daily; Voltaren gel 1% p.r.n.; Zanaflex 8 mg p.o. t.i.d. p.r.n.; fish oil 1000 mg p.o. daily; magnesium supplement 500 mg p.o. daily; Flomax 0.4 mg p.o. daily. He is also on iron supplement 325 mg p.o. daily. He has stopped taking pantoprazole and clozaril. PAST MEDICAL HISTORY: The patient states that he has tardive dyskinesia, essential tremors, neuralgia, night terrors, obstructive sleep apnea, esophageal spasms, gastroparesis, gastroesophageal reflux, tracheal diverticulitis, esophageal diverticulitis, dysphagia, hypersalivation, reduced diastolic function, restricted pulmonary function, SVT, PSVT, edema, back spasms , gallstones, congestive heart failure, chronic pain of unknown etiology. LABORATORY DATA: White cell count is 4.05, hemoglobin 12.2, hematocrit 36.2, platelet count 184. Potassium 3.7, sodium 138, chloride 100, carbon dioxide 29 , BUN 27, creatinine 1.4, glucose 118. Hemoglobin A1c is pending. Calcium 8.8 , cholesterol 188. SOCIAL HISTORY: Patient lives in [place] with roommates. He is one of eight children. One of his brothers is a close social support for him, accompanied him to the walk-in clinic and to the [facility]. Client says, "I have a lot of friends, but I cut myself off from a lot of them because I am too embarrassed a lot of the time." FAMILY HISTORY: The patient reports that older brother used LSD and THC. Two older sisters use a lot of THC. Another older sister has been diagnosed with bipolar disorder. An older brother has untreated bipolar disorder. Another sister has OCD and bipolar disorder. Maternal grandmother has a history of depression. Both parents had depression late in life. MENTAL STATUS EXAMINATION: This is an average height, obese man who looks older than his chronological age, wearing hospital scrubs in a hospital gown, using a walker. He states that he is having allergies. He is sneezing a lot and he has mucus coming out of his nose. He is alert and oriented x4. His demeanor is appropriate, calm and cooperative with MD, but he earlier had been demanding and hostile with staff. His speech rate and volume are within normal limits. His intellectual function appears to be average based upon his vocabulary and fund of knowledge. He is currently denying feeling sad, helpless , hopeless, worthless, and anxious. However, he did have presenting symptoms of emotional lability, depression, and thoughts of suicide with plan to jump off a cruise ship. He currently is denying any thoughts, plans or intent to hurt himself or anyone else. He denies symptoms of psychosis. However, one of his presenting symptoms was a claim that he was experiencing command auditory hallucinations, although he could not specify what the commands were. He is currently not endorsing auditory or visual hallucinations. He denies command hallucinations. He denies paranoia. He denies ideas of reference. When he was seen in the walk-in clinic, he was noted to be hyperverbal and have racing thoughts and pressured speech. He does not have those here on the inpatient unit. He does not have increase in goal-directed activity, decreased need for sleep, racing thoughts, pressured speech, grandiose delusions or elevated, elated mood. His insight and judgment are both impaired. IMPRESSION: 1. Mood disorder, not otherwise specified. 2. Rule out somatoform disorder. 3. Limited social support, social isolation, unclear of whether or not the patient has been compliant or adherent to treatment. PLAN: 1. Admit to the inpatient Behavioral Health Services Unit on an M1 hold. 2. Monitor closely for safety. The patient is not currently exhibiting any signs of unsafe behavior. He is acting appropriately. He is not agitated or aggressive. He is not making threats to hurt himself or anyone else. He is denying suicidal and homicidal thoughts. 3. We will continue to monitor and observe the patient. His behavior has changed significantly from the time he was seen at the walk-in clinic. When he was evaluated at the walk-in clinic and at [facility], he endorsed command auditory hallucinations, extreme mood lability, depression, thoughts of suicide. He is not reporting any of those things here. He presents as stable and in no acute distress. 4. The patient has numerous medical comorbidities, although the patient himself reports that many of his doctors have told him that most of his physical symptoms are "all in my head." He is currently being treated for multiple medical conditions including cardiac issues, hypertension, chronic pain , obstructive sleep apnea, back spasms and more. This MD did spend a great deal of time with the patient going over his medication list that was supplied to us by [facility]. The patient has not been on Clozaril for an undefined amount of time. This MD will try to confer with Dr. Guillaume at [facility] as well as try to get information and medical records from the patient's primary care physician just to confirm that he is on the right medications while in hospital. 5. Given the fact that the patient does seem relatively stable, is not endorsing any thoughts, plans, or intent to hurt himself or anyone else and he is also not endorsing any psychotic symptoms, it is possible that the patient could be discharged upon the expiration of his mental health hold and he could be referred back to his outpatient providers for followup. The patient does say that he needs a CPAP machine. His machine at home is broken. The director of career resources has worked with the patient today to try to put in a request to Medicare to get a replacement CPAP machine. We will work with respiratory therapy to try to find an alternative if one is available. 6. Given the fact that the patient is not endorsing any mood-related symptoms and he is not endorsing any psychotic symptoms, there does not seem to be any need to augment or adjust his current psychotropic regimen, but we will continue to monitor and observe for any changes to the patient's condition while he is in the hospital. 7. Estimated length of stay is 2 to 3 days. /[id number]/MODL MTDD
[2019-03-11] MEDS: OMEGA-3 FATTY ACIDS 1,000 MG CAP PO SCH (20:53)
[2019-03-11] MEDS: MAGNESIUM OXIDE 400 MG TAB PO SCH (20:54)
[2019-03-11] MEDS: traZODone 100 MG TAB PO SCH (20:54)
[2019-03-11] MEDS ORDERED: PANTOPRAZOLE SODIUM 40 MG TAB PO SCH (21:00)
[2019-03-11] MEDS ORDERED: cloZAPine 100 MG TAB PO SCH (21:00)
[2019-03-11] MEDS ORDERED: (Valbenazine Tosylate [Ingrezza] 80 MG) PO SCH (21:00)
[2019-03-12] MEDS: DICLOFENAC SODIUM 1% 100 GM GEL TP PRN (08:37)
[2019-03-12] MEDS: PROPRANOLOL HCL 40 MG TAB PO SCH (08:38)
[2019-03-12] MEDS: OMEGA-3 FATTY ACIDS 1,000 MG CAP PO SCH (08:38)
[2019-03-12] MEDS: (Mirabegron [Myrbetriq] 50 MG) PO SCH (08:51)
[2019-03-12] MEDS ORDERED: TRIAMTERENE/HCTZ 37.5/25 1 EACH CAP PO SCH (09:00)
[2019-03-12] MEDS ORDERED: TAMSULOSIN HCL 0.4 MG CAP PO SCH (09:00)
[2019-03-12] MEDS ORDERED: FERROUS SULFATE 325 MG TAB PO SCH (09:00)
[2019-03-12 11:16] VITALS: BP 96/55
--- NOTE | 2019-03-13 04:50 | BDS ---
[f rep st] BEHAVIORAL HEALTH DISCHARGE SUMMARY REASON FOR ADMISSION: Patient is a 53-year-old man, unemployed, lives with roommates in [place] and an open client of [facility]. He was referred to the walk-in clinic for a crisis assessment by his outpatient therapist after reporting he could not "feel safe with himself." The patient endorsed auditory command hallucinations, severe physical pain and significant emotional pain. Client said he thought of multiple ways of killing himself, including jumping off of a cruise ship, chemical suffocation and strangulation. ADMITTING DIAGNOSES: 1. Mood disorder, not otherwise specified. 2. Rule out somatoform disorder. 3. Limited social support, social isolation, possible noncompliance, nonadherence with treatment. ADMITTING PHYSICAL EXAMINATION: Done by Dr. Gloria Oliva. Please see her H and P for details. She did not find any abnormal physical findings other than the numerous chronic medical comorbidities that the patient is dealing with, including mildly elevated creatinine, back pain, history of PSVTs and history of gastric ulcers. ADMISSION LABS: White cell count 4, hemoglobin 12, hematocrit 36, platelets 194. Sodium 138, potassium 3.7, chloride 100, carbon dioxide 29, BUN 27, creatinine 1.4, glucose 141, triglycerides 204, cholesterol 188. HOSPITAL COURSE: This MD saw the patient on admission. When he arrived on the behavioral health unit, he was extremely angry, demanding, frustrated and unsatisfied. He said he has not been able to sleep at night because his CPAP machine at home is broken, and he has not been willing or able to get it fixed. He said that he thought coming to the hospital would help him get better sleep because he would not have access to a working CPAP machine. Because the patient was admitted so late at night, there was some delay in respiratory therapy procuring a CPAP machine, but he was able to get one and had better sleep for the several days that he was in the hospital, which he said helped him feel better and improved his mood. However, the patient remained very dissatisfied that he did not have access to a cell phone, that there were restrictions on his access to the phone, phone times, visiting times and other restrictions on privileges due to the nature of the inpatient psychiatry unit. On admission, this MD spent a great deal of time going over all the patient's medications to make sure that he was receiving the appropriate medications per his current outpatient regimen. The patient said he was very grateful for the MD taking the time to review his medications with him and for ordering the appropriate medications for him to have while he was on the inpatient unit. During the time that he was in the hospital, the patient denied feeling sad, helpless, hopeless, worthless, anxious or depressed. He said that he had those feelings "all the time" but says that they also come and go. There are times when he is feeling good, and times when he is feeling worse. He says that recently there has been a lot of "peaks and valleys," but says that since his admission to the hospital, that his mood has improved dramatically. He did not display any of the agitated or labile behaviors that were noted when he was evaluated at the walk-in clinic or at [facility]. He consistently denied any psychotic symptoms during his time on the inpatient unit. He did not endorse command auditory hallucinations. He denied auditory and visual hallucinations, as well as ideas of reference, paranoid delusions and any bizarre thoughts. He denied feeling sad, helpless or hopeless. He denied having thoughts, plans or intents to hurt himself or anyone else. He said he was not having urges to self-harm or to engage in any self-destructive behaviors. He said that he was satisfied with the treatment that he received in the hospital, other than the restrictions on freedom of movement and his access to phones, he said that he was comfortable with the medications that he received and that he felt more stable since his admission that he had prior to coming to the hospital. Given the fact that the patient did not endorse any mood related symptoms, psychotic symptoms or manic symptoms, this MD did not feel it necessary to make any adjustments or changes to the patient's outpatient regimen. During the time that this MD and the inpatient staff were able to monitor and observe the patient, he did not have any deterioration in his condition. He remained stable, did not endorse any symptoms of depression, psychosis or kimberly during the time that he was in the hospital, he was not agitated. He was in no distress. He was not combative or threatening with the staff. Many of the presenting symptoms that he exhibited when he was in the walk-in clinic and at [facility] were not present during the time that he was in the hospital and it was decided that given the fact that the patient was able to remain stable throughout the duration of his mental health hold, that he could be discharged to follow up with his outpatient providers in the community. When the patient's hold did on 03/12/2019, the MD asked the patient if he wanted to stay in the hospital, the MD suggested that further monitoring and observation might be warranted, given the fact that he was in such a distressed state when he was seen at the walk-in clinic, and even though those symptoms had not been present while he was in the inpatient unit, it is possible that those symptoms might recur, and that if the patient were in the hospital, he could be assessed for those and treatment could be offered to him, but the patient declined to remain in the hospital. He stated that he would do much better if he was back in a familiar environment, and he felt that he had enough social support at home from friends and his family that if anything did go wrong , that he would immediately call 911 or return to the emergency room or he would call his outpatient psychiatrist, Dr. Guillaume at [facility] and get assessed by his outpatient providers. CONDITION AT DISCHARGE: The patient was stable. He reported that he was in good spirits. He had a bright affect. He was future oriented and optimistic. He stated that he was looking forward to getting back to his home and being able to use his cellphone and use the Internet whenever he wanted. DISCHARGE MEDICATIONS: The patient was not given any prescriptions for medications because he stated that he had ample supply of medications at home with sufficient refills. There were no medication changes while he was in the hospital. He said that he would continue on his current regimen and he would follow up with his outpatient providers. DISCHARGE DIAGNOSES: 1. Mood disorder, not otherwise specified. 2. Rule out somatoform disorder. 3. Multiple severe chronic medical comorbidities. DISPOSITION: The patient's brother came to pick him up from the hospital and take him back home. FOLLOWUP: The patient has followup appointments with his outpatient providers on March 16 and on March 20 at [facility], Dr. Guillaume is his outpatient psychiatrist. He also has a therapist and a case therapist at [facility] that he will see this week. LEGAL COURSE: The patient was changed to voluntary status upon the expiration of his M1 hold prior to his discharge from the inpatient unit. /[id number]/MODL MTDD
== END 2019-03-12 19:15 | disposition home or self-care (01) | DRG 753 ==
LOC: BBEH 20:35
PROVIDERS: ADMIT Registered Nurse; ATTEND Registered Nurse
DX: F39 Unspecified mood [affective] disorder (principal); N17.9 Acute kidney failure, unspecified; G20 Parkinson's disease; F25.0 Schizoaffective disorder, bipolar type; I50.22 Chronic systolic (congestive) heart failure; G89.29 Other chronic pain; F03.90 Unspecified dementia, unspecified severity, without behavioral disturbance, psychotic disturbance, mood disturbance, and anxiety; N40.0 Benign prostatic hyperplasia without lower urinary tract symptoms; I48.0 Paroxysmal atrial fibrillation; K28.9 Gastrojejunal ulcer, unspecified as acute or chronic, without hemorrhage or perforation

== ENCOUNTER 2019-04-16 06:10 | Observation (INO) | payer MEDICAID | END 2019-04-17 16:50 | disposition home or self-care (01) | LOC: F2W 09:22 ==